=== PATIENT | male | born 1945 | race Caucasian/White ===

== ENCOUNTER → 2016-06-15 | Outpatient (CLI) | payer MEDICARE, OTHER ==
[~2016-06-15] MED LIST: ASP81CT PO; ASP81TEC PO; ASPI-999 PO; BUDE6HFA IH; CATHETER FLUSH 10 ML SYR IV PRN; CLOP75TA PO; DCS100C PO; DIPH25TA82 PO; IBUP-15 PO; IBUP-30 PO; MTP25TSR PO; OMEP20CA12 PO; PANT40TA2 PO; PNT40TEC PO; PRAV40TA2 PO; PRV20T PO; REGADENOSON 0.4 MG/5 ML SYR (LEXISCAN) IV ONE; TIOT18CA IH; TIOT18CA2 IH; [UNRECOGNIZED DRUG - CODE] PO
[2016-06-15 07:59] VITALS: BP 124/79
[2016-06-15 08:09] VITALS: BP 129/79
[2016-06-15 08:10] VITALS: BP 122/78
[2016-06-15 08:12] VITALS: BP 129/77
--- NOTE | 2016-06-16 08:50 | STRESS TEST ---
PROCEDURE PHYSICIAN: HANNAH BASHIR DATE OF PROCEDURE: 06/15/2016 NUCLEAR MYOVIEW REPORT: REFERRING PHYSICIAN: Dr. Davison IN SUMMARY: The patient was injected with 10.92 mCi of technetium 99 Myoview and the resting images were obtained. With peak stress level, 31.1 mCi of technetium 99 Myoview were injected and the stress images were obtained. The test was supervised by Dr. Davison. The resting and stress images were reviewed and compared in the short axis, horizontal long axis, and vertical long axis views. Review of the images showed motion artifact and diaphragmatic attenuation. Overall, there is reversible ischemia involving the mid to apical inferior wall and inferolateral wall. SSS is 6, SDS 6, TID value 0.96. On the gated images, the left ventricle appeared to be normal size with normal contractility. Calculated ejection fraction 67%. IN CONCLUSION: 1. Diaphragmatic attenuation and motion artifact affecting the quality of the images. 2. Mild reversible ischemia involving the mid to apical inferior wall and inferolateral wall. 3. Normal left ventricular size with normal contractility. Calculated ejection fraction 67%. Job ID: [id number] Dictated Date: 06/16/2016 08:01:15 Career And Guidance Counselor Date: 06/16/2016 08:47:04 / anusha
== END ==
LOC: CARD 06:40
PROVIDERS: ATTEND Internal Medicine
DX: I25.10 Atherosclerotic heart disease of native coronary artery without angina pectoris (principal); R07.9 Chest pain, unspecified
CPT/HCPCS: 78452; 93017

== ENCOUNTER 2016-06-30 06:41 | Day surgery (SDC) | payer MEDICARE, OTHER ==
[~2016-06-30] VITALS: Ht 180.3 cm; Wt 94.8 kg
[2016-06-30] VITALS (10 sets, daily range): BP systolic 94–157; BP diastolic 62–98
[~2016-06-30 06:41] MED LIST changes: -ASPI-999 PO; -CATHETER FLUSH 10 ML SYR IV PRN; -IBUP-30 PO; -PANT40TA2 PO; -PRAV40TA2 PO; -REGADENOSON 0.4 MG/5 ML SYR (LEXISCAN) IV ONE; -TIOT18CA2 IH; -[UNRECOGNIZED DRUG - CODE] PO
[2016-06-30] MEDS ORDERED: HEParin (CATH LAB) 2,000 ML IV ONE (07:06)
[2016-06-30] MEDS ORDERED: NS IV 1000 ML 1,000 ML ONE (07:06)
[2016-06-30] MEDS ORDERED: LIDOCAINE 1% INJ 20 ML (XYLOCAINE) VIAL ONE (07:06)
[2016-06-30 07:37] LABS: MEAN PLATELET VOLUME 11.9 FL (7.4-10.4); RED BLOOD COUNT 5.46 10^6/uL (4.35-5.85); RED CELL DISTRIBUTION WIDTH 12.9 % (10.0-14.5); WHITE BLOOD COUNT 9.1 10^3/uL (4.3-11.0)
[2016-06-30] MEDS ORDERED: NS IV 1000 ML 1,000 ML IV SCH ×2 (07:45→10:56)
[2016-06-30 07:47] LABS: INR 1.1 (0.8-1.4); PROTHROMBIN TIME PATIENT 13.5 SEC (12.2-14.7)
[2016-06-30 07:57] LABS: ALBUMIN 4.3 G/DL (3.2-4.5); BILIRUBIN,TOTAL 1.6 MG/DL (0.1-1.0); CALCIUM 9.5 MG/DL (8.5-10.1); CREATININE SERUM 1.24 MG/DL (0.60-1.30); POTASSIUM 4.4 MMOL/L (3.6-5.0); TOTAL PROTEIN 7.1 G/DL (6.4-8.2)
[2016-06-30] MEDS ORDERED: ASPI-999 PO (08:27)
[2016-06-30] MEDS ORDERED: [UNRECOGNIZED DRUG - CODE] PO (08:28)
[2016-06-30] MEDS ORDERED: PANT40TA2 PO (08:28)
[2016-06-30] MEDS ORDERED: TIOT18CA2 IH (08:28)
[2016-06-30] MEDS ORDERED: IBUP-30 PO (08:28)
[2016-06-30] MEDS ORDERED: PRAV40TA2 PO (08:28)
[2016-06-30] MEDS ORDERED: MIDAZOLAM 5 MG/5 ML (VERSED) VIAL ONE (09:36)
[2016-06-30] MEDS ORDERED: fentaNYL INJECTION 100 MCG/2 ML AMP ONE (09:36)
[2016-06-30] MEDS ORDERED: diphenhydrAMINE 50 MG/ML INJ (BENADRYL) ONE (09:36)
[2016-06-30] MEDS ORDERED: NITROGLYCERIN DRIP 25 MG/D5W 250 ML IV ONE (10:22)
[2016-06-30] MEDS ORDERED: ADENOSINE 3 MG/1 ML (ADENOSCAN) 30ML VIAL IV ONE (10:22)
[2016-06-30] MEDS ORDERED: HEParin 1000 UNIT/ML (10ML VIAL) FOR BOLUS ONE (10:22)
--- NOTE | 2016-06-30 10:56 | Cardiac Procedure Note-CS/ASA ---
Pre-Procedure Note Pre-Op Procedure Note H&P Reviewed The H&P was reviewed, patient examined and no changes noted. Date H&P Reviewed: Jun 30, 2016 Time H&P Reviewed: 10:15 Conscious Sedation Pre-Proced Time Reviewed: 10:15 ASA Class: 3 Airway Mallampati Classification: ([place] appropriate class) I. II. III, IV Lungs Heart ASA score ASA 1: a normal healthy patient ASA 2: a patient with a mild systemic disease (mid diabetes, controlled hypertension, obesity ASA 3: a patient with a severe systemic disease that limits activity (angina , COPD, prior Myocardial infarction) ASA 4: a patient with an incapacitating disease that is a constant threat to life (CHF, renal failure) ASA 5: a moribund patient not expected to survive 24 hrs. (ruptured aneurysm) ASA 6: a declared brain patient whose organs are being harvested. For emergent operations, add the letter E after the classification Grade 2 Sedation Plan: Analgesia, Amnesia, Plan communicated to team members, Discussed options with patient/fam, Discussed risks with patient/fam Note The patient is an appropriate candidate to undergo the planned procedure, sedation, and anesthesia. The patient immediately re-assessed prior to indication. CONNOR CERDA MD FACP FAC CCDS Jun 30, 2016 10:56
--- NOTE | 2016-06-30 10:59 | Discharge Inst-Cardiology ---
Discharge Inst-Cardiac Discharge Medications Continued Medications: Aspirin (Aspirin) 81 Mg Tab.chew 81 MG PO DAILY TAB Budesonide/Formoterol Fumarate (Symbicort Inhaler 160/4.5 Mcg) 10.2 Gm Hfa.aer.ad 2 PUFF IH BID INHALER Guaifen/Phenyleph/Acetaminophn (Mucinex Sinus-Max Sev Congest) 1 Each Tablet 1-2 CAP PO Q4H PRN CONGESTION TAB Ibuprofen (Advil) 200 Mg Tablet 200 MG PO BID PRN PAIN TAB Metoprolol Succinate (Toprol Xl) 25 Mg Tab 12.5 MG PO DAILY TAKES 1/2 (25MG) TABLET TAB Pantoprazole Sodium (Protonix) 40 Mg Tablet.dr 40 MG PO DAILY TAB Pravastatin Sodium (Pravastatin Sodium) 40 Mg Tablet 40 MG PO DAILY TAB Tiotropium [place] (Spiriva) 1 Inh Aerp 1 CAP IH DAILY INHALER CONNOR CERDA MD FACP [facility] CCDS Jun 30, 2016 10:59
--- NOTE | 2016-06-30 10:59 | Discharge Inst-Post CATH ---
Discharge Inst-CATH Post Cardiac Cath D/C Inst Follow Up/Plan F/u with Dr Crawford in 2 weeks CARDIAC CATH DISCHARGE INSTRUCTIONS *Hold Metformin for 48 hours post heart cath. ACTIVITY * Go Home directly and rest. * Limit activity of the leg (or wrist if it was used) for 7 days including aerobics, swimming, jogging, bicycling, etc. * Restrict stair-climbing for 7 days if possible, if not, climb up with your non -cath leg, then bring together on the same step. * Avoid lifting, pushing, pulling or excessive movement of the affected extremity for 7 days. * Customary sexual activity may be resumed after 2 days-use caution not to use a position that strains or causes pain to the affected extremity. * No driving for 24 hours. * NO SMOKING. * Avoid straining for bowel movements for 7 days. * Gentle walking on level ground is allowed. * Returning to work will depend on the type of procedure and the results. Your doctor will discuss this with you. CALL YOUR DOCTOR FOR ANY OF THE FOLLOWING: *If bleeding from the puncture site occurs- Apply gentle pressure to site with clean cloth and call your doctor or EMS. * If a knot or lump forms under the skin, increases in size, or causes pain. * If bruising appears to be worsening or moving further down your leg instead of disappearing. * Temperature above 101 F. CARE OF YOUR GROIN INCISION; * Bruising or purple discoloration of the skin near the puncture site is common. * You may shower only, no bathtub bathing for 5 days. Be careful to avoid slipping as your leg may feel stiff. * If a closure device was used on your femoral artery, please see the attached guide regarding care of the device and your leg. * REMOVE the dressing from your groin the next day after your procedure in the shower. CARE OF YOUR WRIST INCISION; * Bruising or purple discoloration of the skin near the puncture site is common. * You may shower. * DO NOT submerge wrist. * Remove dressing in 24 hours. CONNOR CRAWFORD [facility] Jun 30, 2016 10:58
[2016-06-30] MEDS ORDERED: PATIENT MAY USE OWN MEDS, ALL PO SCH (11:00)
--- NOTE | 2016-07-01 10:24 | CARDIAC CATHETERIZATION ---
PROCEDURE PHYSICIAN: CONNOR CERDA DATE OF PROCEDURE: 06/30/2016. Jalen Granados is a 71-year-old man with a known history of coronary disease and chest discomfort who recently underwent a myocardial perfusion imaging study which was reported as having shown some degree of inferior and inferoapical ischemia. Accordingly, cardiac catheterization was carried out after having obtained an informed consent. PROCEDURE: He was brought to the cardiac catheterization laboratory in a fasting state. The right groin was prepared and draped in usual sterile fashion. 1% lidocaine was used for local anesthesia. Modified Seldinger technique was used to advance a 5-Cameroonian sheath in the right femoral artery. 5-Cameroonian JL4 catheter was used for left coronary angiography. 5-Cameroonian JR4 catheter was used for the right coronary angiography. 5-Cameroonian pigtail catheter was used for left heart catheterization, left ventricular angiography. FRACTIONAL FLOW RESERVE MEASUREMENT IN THE LEFT CIRCUMFLEX ARTERY: Following completion of the diagnostic procedure, we proceeded with fractional flow reserve measurement in the left circumflex artery, which had 50 to 60% ostial, 40 to 50% proximal and 40 to 50% mid vessel stenoses. We used the 6-Cameroonian JL4 guide catheter and a pressure wire was then advanced across the lesions and the fractional flow reserve measurement was carried out across the combination of all lesions. The fractional flow reserve was 0.97, indicating hemodynamic insignificance of these lesions. Following the fractional flow reserve measurement, there was some spasm of distal left circumflex artery for which we gave 100 mcg of intracoronary nitroglycerin which relieved the spasm. After removal of the wire and the guide catheter, we used Mynx to achieve hemostasis. Angiography of the right femoral artery had been carried out through the sheath at the beginning of the procedure. Overall, he tolerated the procedure well. HEMODYNAMICS: Left ventricular end diastolic pressure following coronary angiography was 6 mmHg. There was no significant pressure gradient on pullback across the aortic valve. Ascending aortic pressure 105/66 with a mean of 62 mmHg. LEFT VENTRICULAR ANGIOGRAPHY: Ventricular angiography was carried out in the right anterior oblique projection. Global left ventricular systolic is normal. No regional wall motion abnormalities are seen. Left ventricular ejection fraction is approximately 60%. CORONARY ANGIOGRAPHY: The left main coronary artery is free of significant disease. Diffuse coronary plaques are present. The left anterior descending artery has diffuse, mild disease. Left circumflex artery has 50% ostial, 40 to 50% proximal to mid vessel and 40 to 50% mid to distal vessel stenoses and the fractional flow reserve across the combination of all these lesions is 0.97, indicating that these lesions are hemodynamically insignificant. The right coronary artery has a widely patent stent in its proximal portion. This is known to be Promus 3.0 x 18 mm stent that was placed in July 2011. This is widely patent and free of significant disease. The right coronary artery is mildly ectatic. CONCLUSIONS: 1. Coronary disease as detailed above. The coronary artery disease is mild to moderate. Multiple lesions in the left circumflex artery are of up to 50 to 60% and fractional flow reserve across all of these lesions is 0.97. The right coronary artery is widely patent stent that is known to be Promus 3.0 x 18 mm that was placed in July 2011. 2. Normal left ventricular end diastolic pressure. 3. Normal global left ventricular systolic function with an ejection fraction of 60%. 4. No significant mitral regurgitation. DISCUSSION AND RECOMMENDATIONS: Based on the results of this the study, it appears appropriate to continue a conservative regimen. Risk factor modification has been reviewed and outpatient follow-up is advised. Job ID: [id number] Dictated Date: 06/30/2016 10:50:00 Digester Cook Date: 07/01/2016 10:11:34 / vickie
== END 2016-06-30 14:35 | disposition home or self-care (01) ==
LOC: CATH 06:41 → SURG 10:58 → CATH 14:35
PROVIDERS: ATTEND Internal Medicine Cardiovascular Disease
DX: R07.89 Other chest pain (principal); R94.39 Abnormal result of other cardiovascular function study; I25.10 Atherosclerotic heart disease of native coronary artery without angina pectoris; J44.9 Chronic obstructive pulmonary disease, unspecified; K21.9 Gastro-esophageal reflux disease without esophagitis; E78.5 Hyperlipidemia, unspecified; Z85.46 Personal history of malignant neoplasm of prostate; Z87.891 Personal history of nicotine dependence; Z95.1 Presence of aortocoronary bypass graft; Z79.899 Other long term (current) drug therapy
CPT/HCPCS: 36415; 80053; 80061; 85027; 85610; 85730; 87081; 93458; 93571

== ENCOUNTER 2017-08-09 05:49 | Outpatient (CLI) | payer MEDICARE, OTHER ==
[~2017-08-09] VITALS: Ht 180.3 cm; Wt 94.8 kg
[~2017-08-09 05:49] MED LIST changes: +ASPI-999 PO; +IBUP-30 PO; +PANT40TA2 PO; +PRAV40TA2 PO; +TIOT18CA2 IH; +[UNRECOGNIZED DRUG - CODE] PO
[2017-08-09] MEDS ORDERED: BUDE10.2 IH (12:16)
[2017-08-09] MEDS ORDERED: METO-387 PO (12:16)
== END 2017-08-09 12:20 ==
LOC: PREOP 05:49
PROVIDERS: ATTEND Surgery
DX: Z01.818 Encounter for other preprocedural examination (principal); K40.90 Unilateral inguinal hernia, without obstruction or gangrene, not specified as recurrent

== ENCOUNTER 2017-08-26 07:08 | Day surgery (SDC) | payer MEDICARE, OTHER ==
[~2017-08-26] VITALS: Ht 180.3 cm; Wt 94.8 kg
[~2017-08-26 07:08] MED LIST changes: +BUDE10.2 IH; +METO-387 PO
[2017-08-26] MEDS ORDERED: BUP/EPI 0.5% 1:200,000 (SENSORCAINE) 30 ML VIAL ONE (07:25)
[2017-08-26] MEDS ORDERED: ceFAZolin 1 GM/NS 100 ML IVPB IV ONE ×2 (07:30)
[2017-08-26] MEDS ORDERED: CATHETER FLUSH 10 ML SYR IV PRN (07:30)
[2017-08-26] MEDS ORDERED: LACTATED RINGERS 1,000 ML IV PRN (07:40)
[2017-08-26 07:44] VITALS: BP 135/96
[2017-08-26] MEDS ORDERED: ceFAZolin INJECTION 1,000 MG in NS (IVPB) 100 ML IV ONE (07:45)
--- NOTE | 2017-08-26 07:57 | Progress Note-Pre Operative ---
Pre-Operative Progress Note H&P Reviewed The H&P was reviewed, patient examined and no changes noted. Date Seen by Provider: Aug 26, 2017 Time Seen by Provider: 07:50 Date H&P Reviewed: Aug 26, 2017 Time H&P Reviewed: 07:55 Pre-Operative Diagnosis: Symptomatic right inguinal hernia ZOYA ACOSTA APRN Aug 26, 2017 7:57 am
[2017-08-26] MEDS ORDERED: HYDROcodone/APAP 5 MG/325 MG (LORTAB) TAB PO ONE (08:00)
[2017-08-26] MEDS ORDERED: ONDANSETRON 4 MG/2 ML (SDV) Z0FRAN IVP PRN ×2 (08:00→10:15)
[2017-08-26] MEDS ORDERED: morphine INJ 10 MG/ML 1ML (SYR OR VIAL) IVP PRN ×2 (08:00→10:15)
[2017-08-26] MEDS ORDERED: ACETAMINOPHEN 325 MG TABLET/CAPLET (TYLENOL) PO PRN (08:00)
[2017-08-26] MEDS ORDERED: proPOfol 200 MG/20 ML (DIPRIVAN) VIAL IV ONE (08:03)
[2017-08-26] MEDS ORDERED: ROCURONIUM 10 MG/ML 5 ML SYRINGE IV ONE (08:03)
[2017-08-26] MEDS ORDERED: MIDAZOLAM 2 MG/2 ML (VERSED) VIAL ONE (08:03)
[2017-08-26] MEDS ORDERED: DEXAMETHASONE 10 MG/ML (DECADRON) 1 ML VIAL ONE (08:03)
[2017-08-26] MEDS ORDERED: ONDANSETRON 4 MG/2 ML (SDV) Z0FRAN ONE (08:03)
[2017-08-26] MEDS ORDERED: SEVOFLURANE (ULTANE) 15 ML INHAL SOLN ONE ×5 (08:03→09:47)
[2017-08-26] MEDS ORDERED: LIDOCAINE PF 2% 5 ML (XYLOCAINE) VIAL ONE (08:03)
[2017-08-26] MEDS ORDERED: fentaNYL INJECTION 100 MCG/2 ML AMP ONE (08:04)
[2017-08-26 08:05] LABS: BASOPHILS # (AUTO) 0.1 10^3/uL (0.0-0.1); BASOPHILS % (AUTO) 1 % (0-10); EOSINOPHILS # (AUTO) 0.4 10^3/uL (0.0-0.3); EOSINOPHILS % (AUTO) 6 % (0-10); HEMATOCRIT 49 % (40-54); HEMOGLOBIN 16.8 G/DL (13.3-17.7); LYMPHOCYTES % (AUTO) 15 % (12-44); MEAN CORPUSCULAR HEMOGLOBIN 30 PG (25-34); MEAN CORPUSCULAR HGB CONC 34 G/DL (32-36); MEAN CORPUSCULAR VOLUME 88 FL (80-99); MEAN PLATELET VOLUME 12.4 FL (7.4-10.4); MONOCYTES # (AUTO) 0.9 X 10^3 (0.0-1.0); MONOCYTES % (AUTO) 14 % (0-12); NEUTROPHILS # (AUTO) 4.3 X 10^3 (1.8-7.8); NEUTROPHILS % (AUTO) 65 % (42-75); PLATELET COUNT 162 10^3/uL (130-400); RED BLOOD COUNT 5.58 10^6/uL (4.35-5.85); RED CELL DISTRIBUTION WIDTH 12.9 % (10.0-14.5); WHITE BLOOD COUNT 6.6 10^3/uL (4.3-11.0)
[2017-08-26] MEDS ORDERED: PHENYLEPHRINE 100 MCG/ML 10 ML (ANESTHESIA) SYR ONE (09:42)
[2017-08-26] MEDS ORDERED: GLYCOPYRROLATE 0.2 MG/ML (ROBINUL) 2 ML VIAL ONE (09:46)
[2017-08-26] MEDS ORDERED: NEOSTIGMINE 1 MG/ML 5 ML SYRINGE ONE (09:46)
--- NOTE | 2017-08-26 10:01 | Progress Note-Post Operative ---
Post-Operative Progess Note Surgeon (s)/Mechanical Door Repairer (s) Surgeon ANNA WHITE MD Mechanical Door Repairer: gianni rios WELDER Pre-Operative Diagnosis Symptomatic right inguinal hernia Post-Operative Diagnosis right recurrent incarcerated direct inguinal hernia. Procedure & Operative Findings Date of Procedure 08/26/17 Procedure Performed/Findings laparoscopic right recurrent incarcerated inguinal hernia repair with mesh. Anesthesia Type GET Estimated Blood Loss Estimated blood loss (mL): minimal Specimens/Packing Specimens Removed none ANNA WHITE MD Aug 26, 2017 10:01 am
[2017-08-26] MEDS ORDERED: HYDR-34 PO (10:03)
--- NOTE | 2017-08-26 10:05 | Discharge Inst-Surgical ---
D/C Lap Instructions-CHRISTOPHER New, Converted, or Re-Newed RX: RX on Chart Follow Up Appt in 2 weeks Activity as tolerated No driving for 24 hours No driving while on pain medications Incentive Spirometry use every 2 hours while awake Regular Diet Symptoms to Report: Fever over 101 degree F, Nausea/Vomiting Infection Signs and Symptoms to report: Increased redness, Foul odor of wound, Increased drainage Bathing instructions: May shower Operative Area Clean/Dry; Keep incision clean/dry If any problems/questions: Contact your physician or go to Emergency Room ANNA WHITE MD Aug 26, 2017 10:05 am
[2017-08-26] MEDS ORDERED: MEPERIDINE (DEMEROL) INJ 50 MG/ML IVP PRN (10:15)
[2017-08-26 11:05] VITALS: BP 100/56
[2017-08-26 11:35] VITALS: BP 102/60
[2017-08-26 12:05] VITALS: BP 104/60
[2017-08-26] MEDS ORDERED: HYDROcodone/APAP 5 MG/325 MG (LORTAB) TAB ONE (12:05)
[2017-08-26 13:00] VITALS: BP 110/63
[2017-08-26 13:40] VITALS: BP 110/63
--- NOTE | 2017-08-26 13:58 | Anesthesia-General Post-Op ---
General Patient Condition Mental Status/LOC: Same as Preop Cardiovascular: Satisfactory Nausea/Vomiting: Absent Respiratory: Satisfactory Pain: Controlled Complications: Absent Post Op Complications Complications None Follow Up Care/Instructions Patient Instructions None needed. Anesthesia/Patient Condition Patient Condition Patient was seen after surgery and was doing well, no complaints, stable vital signs, no apparent adverse anesthesia problems. CHEIKH ELLIOTT DO Aug 26, 2017 13:58
--- NOTE | 2017-08-26 14:34 | OPERATIVE REPORT ---
DATE OF SERVICE: 08/26/2017 ATTENDING PRIMARY CARE PHYSICIANS: Dr. Davison and Dr. Zimmerman. PREOPERATIVE DIAGNOSIS: Symptomatic recurrent right inguinal hernia. POSTOPERATIVE DIAGNOSIS: Symptomatic recurrent incarcerated direct inguinal hernia. PROCEDURE: Laparoscopic recurrent incarcerated right inguinal hernia repair with mesh. SURGEON: Anna Kirkpatrick MD. ANESTHESIA: General endotracheal. MUSIC INSTRUCTOR: Abe Cuevas APRN. ANESTHESIA: General endotracheal. ESTIMATED BLOOD LOSS: Minimal. FINDINGS: There was a recurrent inguinal hernia, which was a direct component. This was incarcerated and contents included preperitoneal fat. DISPOSITION: The patient tolerated the procedure well. INDICATIONS: The patient is a 72-year-old male with pain and swelling in the right inguinal region. He states that he has noticed this approximately 6 weeks ago while he was lifting oxygen tank for his . He first noticed the pain and then the bulge and this worsened over time. He was seen by his primary care physician and found to have the lesion. Upon examination, he had a right inguinal hernia, which was tender to palpation. He has had bilateral inguinal hernia repairs by open technique in the 1970s. DESCRIPTION OF PROCEDURE: The patient was brought to the operating room, laid supine on the table. After adequate IV pain and sedative medications and general endotracheal intubation, the abdomen was prepped and draped in standard surgical fashion. A 0.5% Marcaine with epinephrine was used to anesthetize the overlying skin in the infraumbilical rim and a transverse skin incision made using a 15 blade. The abdominal wall was then retracted anteriorly with a sharp towel clamp and a Veress needle inserted with a low opening pressure of 0 mmHg and the abdomen was then insufflated to 15 mmHg pressure. The Veress needle removed and a 10 mm Xcel trocar placed followed by a 10 mm 45-degree angle laparoscope. The patient was then placed in Trendelenburg position. A four-quadrant abdominal exploration was performed. There was a right incarcerated direct inguinal hernia identified. The herniated contents appeared to be mesenteric fat or preperitoneal fat. There was no left inguinal hernia component. It was visualized the small bowel and omentum appeared normal. Under direct visualization, we then proceeded to place bilateral 5 mm ports after the skin and peritoneal lining were anesthetized using 0.5% Marcaine with epinephrine and a transverse skin incision made using a 15 blade. We then proceeded with dissection of the peritoneal lining, first starting laterally towards the conjoint tendon using Sonicision. We then proceeded medially towards Chetan's ligament. We then proceeded with inferior dissection with the hernia sac and its contents. The contents reduced without pressure. This was all preperitoneal fat. There was no ischemia identified. A Bard 3DMax polypropylene mesh was then placed into the peritoneal cavity and tacked to Chetan's ligament medially and the conjoint tendon ligament laterally. The peritoneal lining were then placed entirely over the mesh and a few tacks placed to hold this into place with visualization of good hemostasis. The 10 mm port site fascia and peritoneum were then closed under direct visualization using a Miguelito-Melonie device and an 0 Vicryl suture. Abdomen was then desufflated. The remaining ports removed. All skin incisions were closed using 4-0 Monocryl running subcuticular sutures. The patient tolerated the procedure well. We will start IV and oral pain medication as well as a clear liquid diet. Once he is tolerating clears, has good pain control with oral pain medications, ambulating well, we will discharge him home. Job ID: [id number] DocumentID: [id number] Dictated Date: 08/26/2017 10:19:35 Spent Grain Dryer Date: 08/26/2017 14:33:25 Dictated By: ANNA KIRKPATRICK MD [facility]
== END 2017-08-26 13:40 | disposition home or self-care (01) ==
LOC: SDC 07:08
PROVIDERS: ATTEND Surgery
DX: K40.31 Unilateral inguinal hernia, with obstruction, without gangrene, recurrent (principal); I25.10 Atherosclerotic heart disease of native coronary artery without angina pectoris; I10 Essential (primary) hypertension; E78.00 Pure hypercholesterolemia, unspecified; J44.9 Chronic obstructive pulmonary disease, unspecified; K21.9 Gastro-esophageal reflux disease without esophagitis; Z85.46 Personal history of malignant neoplasm of prostate; Z79.82 Long term (current) use of aspirin; Z79.899 Other long term (current) drug therapy; Z95.5 Presence of coronary angioplasty implant and graft
CPT/HCPCS: 36415; 85025; 87081; 94664

== ENCOUNTER → 2018-08-16 | Outpatient (CLI) | payer MEDICARE, OTHER ==
[~2018-08-16] MED LIST changes: +HYDR-34 PO
--- NOTE | 2018-08-16 12:02 | Diagnostic Imaging Report ---
INDICATION: Pneumonia. COMPARISON: 11/22/2012. FINDINGS: Frontal and lateral radiographic views of the chest were obtained and demonstrate patchy alveolar infiltrate appearing opacities within the right lower lobe, posteriorly. Left lung is relatively clear. There does appear to be background hyperinflation bilaterally. No large effusion or pneumothorax is seen on either side. Cardiac silhouette and pulmonary vasculature are within normal limits. Bony structures show no acute abnormalities. IMPRESSION: 1. Patchy pneumonia-type infiltrates within the right lower lobe. Continued followup to resolution is recommended. 2. Background emphysematous disease. Dictated by: Dictated on workstation # [id number]
== END ==
LOC: RAD 11:23
PROVIDERS: ATTEND Internal Medicine
DX: J43.9 Emphysema, unspecified (principal); J18.9 Pneumonia, unspecified organism
CPT/HCPCS: 71046

== ENCOUNTER → 2019-02-21 | Outpatient (CLI) | payer MEDICARE, OTHER ==
[~2019-02-21] MED LIST changes: +REGADENOSON 0.4 MG/5 ML SYR (LEXISCAN) IV ONE
[2019-02-21] MEDS: CATHETER FLUSH 10 ML SYR IV PRN ×2 (11:19→13:10)
[2019-02-21 13:00] VITALS: BP 103/78
[2019-02-21 13:10] VITALS: BP 103/78
[2019-02-21 13:11] VITALS: BP 147/95
--- NOTE | 2019-02-22 18:04 | STRESS TEST ---
DATE OF SERVICE: 02/21/2019 RESTING AND POST REGADENOSON TECHNETIUM-99M TETROFOSMIN SPECT CT IMAGING ORDERING PHYSICIAN: Lindsey Gomez APRN PRIMARY PHYSICIAN: Dr. Davison. CLINICAL DIAGNOSES: Coronary artery disease. Baseline images were carried out after injection of 10.79 mCi of technetium-99m Tetrofosmin. This was followed by 0.4 mg regadenoson and 31.6 mCi of technetium-99m Tetrofosmin for stress imaging. The electrocardiogram showed sinus rhythm at baseline and did not change significantly with the regadenoson infusion. The patient noted some shortness of breath following regadenoson which resolved in a few minutes. Review of images at rest and following stress does not indicate any distinct perfusion defects consistent with significant myocardial ischemia or infarction. This study is compromised because of considerable patient motion during image acquisition. Gated images show normal regional wall motion. Left ventricular ejection fraction is calculated to be 74%. Left ventricular end diastolic volume is 53 mL. TID is absent (1.03). CONCLUSIONS: 1. No evidence of any significant myocardial ischemia or infarction on this study. 2. Normal regional wall motion. 3. Normal global left ventricular systolic function with a calculated ejection fraction of 74%. Job ID: [id number] DocumentID: [id number] Dictated Date: 02/22/2019 12:58:54 Neonatal Surgeon Date: 02/22/2019 18:04:05 Dictated By: CONNOR CERDA MD, MA, FACP, FACC,
== END ==
LOC: CARD 10:44
PROVIDERS: ATTEND Nurse Practitioner Family
DX: I25.10 Atherosclerotic heart disease of native coronary artery without angina pectoris (principal); I65.29 Occlusion and stenosis of unspecified carotid artery; E78.5 Hyperlipidemia, unspecified
CPT/HCPCS: 78452; 93017

== ENCOUNTER → 2019-12-14 | Outpatient (CLI) | payer MEDICARE, OTHER ==
[~2019-12-14] MED LIST changes: -METO-387 PO; -REGADENOSON 0.4 MG/5 ML SYR (LEXISCAN) IV ONE
== END ==
LOC: LABNPT 08:16
PROVIDERS: ATTEND Internal Medicine
DX: Z20.828 Contact with and (suspected) exposure to other viral communicable diseases (principal)
CPT/HCPCS: 87635

== ENCOUNTER → 2020-08-23 | Outpatient (CLI) | payer MEDICARE, OTHER ==
--- NOTE | 2020-08-23 10:59 | Diagnostic Imaging Report ---
INDICATION: Right upper quadrant pain PROCEDURE: Ultrasound abdomen complete. TECHNIQUE: Multiple real-time grayscale images were obtained of the abdomen in various projections. There are no prior ultrasound examinations available for comparison. There is no evidence for cholelithiasis or acute cholecystitis and the common bile duct is not dilated. The liver is homogeneous and does not appear to be enlarged. There is no focal mass involving the liver and the biliary tree is not abnormally distended. Spectral and color flow images of the portal vein shows the vein is patent. The spleen is somewhat prominent but within normal limits. The spleen measures 12.0 x 5.6 x 4.9 cm. There is no focal abnormality involving the spleen. The kidneys and the inferior vena cava are unremarkable. The aorta and the pancreas were obscured by bowel gas. There is no solid abdominal mass or free fluid collection evident. IMPRESSION: 1. There is no acute abnormality of the abdomen although the pancreas and aorta were not well-visualized. 2. If there is clinical concern regarding an acute abnormality of the gallbladder and if further imaging is desired, then nuclear medicine hepatobiliary scan would be recommended. Dictated by: Dictated on workstation # [id number]
== END ==
LOC: RAD 07:39
PROVIDERS: ATTEND Internal Medicine
DX: R10.11 Right upper quadrant pain (principal)
CPT/HCPCS: 76700

== ENCOUNTER → 2020-09-12 | Outpatient (CLI) | payer MEDICARE ==
[~2020-09-12] MED LIST changes: +CATHETER FLUSH 10 ML SYR IV PRN
--- NOTE | 2020-09-12 11:18 | Diagnostic Imaging Report ---
INDICATION: Right upper quadrant abdominal pain. Patient was administered 5.3 mCi technetium 99m Choletec intravenously and imaging over the abdomen was performed. At 45 minutes, patient ingested 8 ounces of Ensure and the gallbladder ejection fraction was calculated. There is homogeneous uptake of activity by the liver with prompt excretion of activity into the common duct and gallbladder. There is normal passage of activity into the small bowel. Gallbladder ejection fraction is normal at 70%. IMPRESSION: Normal HIDA scan and gallbladder ejection fraction. Dictated by: Dictated on workstation # [id number]
== END ==
LOC: CARD 10:00
PROVIDERS: ATTEND Internal Medicine
DX: R10.11 Right upper quadrant pain (principal)
CPT/HCPCS: 78227; A9537

== ENCOUNTER 2020-12-17 10:53 | Emergency (ER) | payer MEDICARE, OTHER ==
[~2020-12-17] VITALS: Ht 180.3 cm; Wt 84.0 kg
[~2020-12-17 10:53] MED LIST changes: -CATHETER FLUSH 10 ML SYR IV PRN
--- NOTE | 2020-12-17 11:15 | ED Respiratory ---
General Chief Complaint: Respiratory Problems Stated Complaint: SOB Source: patient History of Present Illness Date Seen by Provider: Dec 17, 2020 Time Seen by Provider: 10:57 Initial Comments PT ARRIVES VIA POV FROM HOME C/O SHORTNESS OF BREATH SINCE Wednesday12/15/20 STATES HE HAS COPD, AND USED ALBUTEROL NEBULIZER X 1 ON WEDNESDAY, AND USED HIS SYMBICORT INHALER JUST PRIOR TO ARRIVAL. OTHERWISE HAS NOT TAKEN ANYTHING ELSE FOR SYMPTOMS C/O COUGH, BUT STATES IS NORMAL FOR HIM NO FEVER/SWEATS/CHILLS NO LOSS OF TASTE/SMELL NO SWELLING IN LEGS/ FEET NO CHEST PAIN HAS NOT SOUGHT CARE UNTIL TODAY SYMPTOMS NO DIFFERENT TODAY DOES NOT WEAR HOME O2 NO KNOWN SICK CONTACTS--LIVES AT HOME WITH PT DID RECEIVE COVID VACCINE PCP: DR. VENEGAS SEWER LINE PHOTO INSPECTOR: DR. CERDA Allergies and Home Medications Allergies Coded Allergies: No Known Drug Allergies (Unverified , 08/09/17) Home Medications Aspirin 81 Mg Tab.chew, 81 MG PO DAILY, (Reported) Budesonide/Formoterol Fumarate 10.2 Gm Hfa.aer.ad, 2 PUFF IH BID, (Reported) Hydrocodone Bit/Acetaminophen 1 Ea Tablet, 1-2 EACH PO Q4H Prescribed by: ANNA WHITE on 08/26/17 1003 Metoprolol Succinate 25 Mg Tab.er.24h, 12.5 MG PO DAILY, (Reported) Pantoprazole Sodium 40 Mg Tablet.dr, 40 MG PO DAILY, (Reported) Pravastatin Sodium 40 Mg Tablet, 40 MG PO DAILY, (Reported) Past Erxrhis-Uwjcfw-Qdijex Hx Seasonal Allergies Seasonal Allergies: No Past Medical History COPD Coronary Artery Disease, Heart Attack, High Cholesterol, Hypertension Reproductive Disorders: No Sexually Transmitted Disease: No HIV/AIDS: No Prostate Problems Gastroesophageal Reflux, Polyps Loss of Vision: Bilateral Hearing Impairment: Denies Prostate What Type of Treatment Did You: Surgical Intervention Psoriasis Adverse Reaction/Blood Tranf: No (HAS HAD BLOOD WITH NO REACTION) Physical Exam Vital Signs - First Documented 12/17/20 10:58 Temp 36.0 Pulse 76 Resp 16 B/P (MAP) 166/97 (120) Pulse Ox 96 O2 Delivery Room Air Capillary Refill : Height: 5'11.00" Weight: 209lbs. 0.0oz. 94.432059xf; 29.2 BMI Method: Focused Exam Lactate Level 12/17/20 11:05: Lactic Acid Level 0.88 Lactic Acid Level Laboratory Tests Test 12/17/20 11:05 Lactic Acid Level 0.88 MMOL/L (0.50-2.00) Progress/Results/Core Measures Suspected Sepsis SIRS Temperature: Pulse: Respiratory Rate: Laboratory Tests 12/17/20 11:05: White Blood Count 7.0 Blood Pressure / Mean: 12/17/20 11:05: Lactic Acid Level 0.88 Laboratory Tests 12/17/20 11:05: Creatinine 1.13, INR Comment 1.0, Platelet Count 207, Total Bilirubin 2.0H Results/Orders Lab Results Laboratory Tests Test 12/17/20 11:01 12/17/20 11:05 Range/Units Influenza Type A (RT-PCR) Not Detected Not Detecte Influenza Type B (RT-PCR) Not Detected Not Detecte SARS-CoV-2 RNA (RT-PCR) Not Detected Not Detecte White Blood Count 7.0 4.3-11.0 10^3/uL Red Blood Count 5.37 4.30-5.52 10^6/uL Hemoglobin 15.8 13.3-17.7 g/dL Hematocrit 49 40-54 % Mean Corpuscular Volume 91 80-99 fL Mean Corpuscular Hemoglobin 29 25-34 pg Mean Corpuscular Hemoglobin Concent 32 32-36 g/dL Red Cell Distribution Width 12.5 10.0-14.5 % Platelet Count 207 130-400 10^3/uL Mean Platelet Volume 11.5 9.0-12.2 fL Immature Granulocyte % (Auto) 0 % Neutrophils (%) (Auto) 73 42-75 % Lymphocytes (%) (Auto) 13 12-44 % Monocytes (%) (Auto) 9 0-12 % Eosinophils (%) (Auto) 3 0-10 % Basophils (%) (Auto) 1 0-10 % Neutrophils # (Auto) 5.1 1.8-7.8 10^3/uL Lymphocytes # (Auto) 0.9 L 1.0-4.0 10^3/uL Monocytes # (Auto) 0.7 0.0-1.0 10^3/uL Eosinophils # (Auto) 0.2 0.0-0.3 10^3/uL Basophils # (Auto) 0.1 0.0-0.1 10^3/uL Immature Granulocyte # (Auto) 0.0 0.0-0.1 10^3/uL Erythrocyte Sedimentation Rate 1 0-30 MM/HR Prothrombin Time 13.6 12.2-14.7 SEC INR Comment 1.0 0.8-1.4 Activated Partial Thromboplast Time 32 24-35 SEC D-Dimer < 0.22 0.00-0.49 UG/ML Sodium Level 140 135-145 MMOL/L Potassium Level 4.0 3.6-5.0 MMOL/L Chloride Level 102 98-107 MMOL/L Carbon Dioxide Level 30 21-32 MMOL/L Anion Gap 8 5-14 MMOL/L Blood Urea Nitrogen 13 7-18 MG/DL Creatinine 1.13 0.60-1.30 MG/DL Estimat Glomerular Filtration Rate > 60 BUN/Creatinine Ratio 12 Glucose Level 95 70-105 MG/DL Lactic Acid Level 0.88 0.50-2.00 MMOL/L Calcium Level 9.2 8.5-10.1 MG/DL Corrected Calcium 9.1 8.5-10.1 MG/DL Magnesium Level 2.3 1.6-2.4 MG/DL Total Bilirubin 2.0 H 0.1-1.0 MG/DL Aspartate Amino Transf (AST/SGOT) 23 5-34 U/L Alanine Aminotransferase (ALT/SGPT) 26 0-55 U/L Alkaline Phosphatase 124 40-136 U/L Total Creatine Kinase 50 30-200 U/L Creatine Kinase MB 2.0 <6.6 NG/ML Myoglobin 97.5 H 10.0-92.0 NG/ML Troponin I < 0.028 <0.028 NG/ML C-Reactive Protein High Sensitivity 0.16 0.00-0.50 MG/DL B-Type Natriuretic Peptide 27.9 <100.0 PG/ML Total Protein 6.7 6.4-8.2 GM/DL Albumin 4.1 3.2-4.5 GM/DL Amylase Level 58 25-125 U/L Procalcitonin 0.04 <0.10 NG/ML Serum Alcohol < 10 <10 MG/DL My Orders Orders - REZA MCNAMARA DO Ed Iv/Invasive Line Start (12/17/20 10:59) Ekg Tracing (12/17/20 10:59) Monitor-Rhythm Ecg Trace Only (12/17/20 10:59) BNP (12/17/20 10:59) Cbc With Automated Diff (12/17/20 10:59) Comprehensive Metabolic Panel (12/17/20 10:59) Creatine Kinase (12/17/20 10:59) Creatine Kinase Mb (12/17/20 10:59) Hs C Reactive Protein (12/17/20 10:59) Fibrin Degradation Products (12/17/20 10:59) Magnesium (12/17/20 10:59) Protime With Inr (12/17/20 10:59) Partial Thromboplastin Time (12/17/20 10:59) Erythrocyte Sedimentation Rate (12/17/20 10:59) Myoglobin Serum (12/17/20 10:59) Troponin I (12/17/20 10:59) Chest 1 View, Ap/Pa Only (12/17/20 10:59) Procalcitonin (Pct) (12/17/20 10:59) Covid 19 Inhouse Test (12/17/20 10:59) Influenza A And B By Pcr (12/17/20 10:59) Alcohol (12/17/20 10:59) Amylase (12/17/20 10:59) Lactic Acid Analyzer (12/17/20 10:59) Blood Culture (12/17/20 10:59) Methylprednisolone Sod Succ (Solu-Medrol (12/17/20 12:15) Vital Signs/I&O 12/17/20 10:58 Temp 36.0 Pulse 76 Resp 16 B/P (MAP) 166/97 (120) Pulse Ox 96 O2 Delivery Room Air Capillary Refill : Diagnostic Imaging Comments CXR--PER RADIOLOGIST REPORT AT 1125 FINDINGS: The lung volumes are normal. No focal consolidation is seen. Chronic fibrotic changes are again seen in the lungs. No large pleural effusion or pneumothorax is seen. The cardiomediastinal silhouette is normal in size and contour. No acute osseous abnormality is seen. IMPRESSION: 1. Stable chronic fibrotic changes in the lungs without focal consolidation to suggest pneumonia. Reviewed: Reviewed by Me Departure Impression Primary Impression: COPD exacerbation Disposition: HOME, SELF-CARE Condition: Stable Departure-Patient Inst. Decision time for Depature: 12:10 Referrals: ALE VENEGAS DO (PCP/Family) Primary Care Physician Patient Instructions: Chronic Obstructive Pulmonary Disease (COPD), Including Emphysema Add. Discharge Instructions: USE YOUR ALBUTEROL NEBULIZER EVERY 4 HOURS NEEDED FOR SHORTNESS OF BREATH USE YOUR SYMBICORT TWICE A DAY EVERY DAY FOLLOW UP WITH DR. VENEGAS THIS WEEK FOR FURTHER CARE--CALL TODAY TO SCHEDULE AN APPOINTMENT All discharge instructions reviewed with patient and/or family. Voiced understanding. Scripts Methylprednisolone (Medrol) 4 Mg Tab.ds.pk 4 MG PO UD for 6 Days, #21 PKG PER DOSE PACK INSTRUCTIONS Prov: REZA MCNAMARA DO 12/17/20 REZA MCNAMARA DO Dec 17, 2020 11:15
[2020-12-17 11:21] LABS: BASOPHILS # (AUTO) 0.1 10^3/uL (0.0-0.1); BASOPHILS % (AUTO) 1 % (0-10); EOSINOPHILS # (AUTO) 0.2 10^3/uL (0.0-0.3); EOSINOPHILS % (AUTO) 3 % (0-10); HEMATOCRIT 49 % (40-54); HEMOGLOBIN 15.8 g/dL (13.3-17.7); LYMPHOCYTES # (AUTO) 0.9 10^3/uL (1.0-4.0); LYMPHOCYTES % (AUTO) 13 % (12-44); MEAN CORPUSCULAR HEMOGLOBIN 29 pg (25-34); MEAN CORPUSCULAR HGB CONC 32 g/dL (32-36); MEAN CORPUSCULAR VOLUME 91 fL (80-99); MEAN PLATELET VOLUME 11.5 fL (9.0-12.2); MONOCYTES # (AUTO) 0.7 10^3/uL (0.0-1.0); MONOCYTES % (AUTO) 9 % (0-12); NEUTROPHILS # (AUTO) 5.1 10^3/uL (1.8-7.8); NEUTROPHILS % (AUTO) 73 % (42-75); PLATELET COUNT 207 10^3/uL (130-400)
--- NOTE | 2020-12-17 11:24 | Diagnostic Imaging Report ---
EXAMINATION: Chest 1 view HISTORY: Dyspnea. Evaluate for pneumonia. COMPARISON: 08/16/2018. FINDINGS: The lung volumes are normal. No focal consolidation is seen. Chronic fibrotic changes are again seen in the lungs. No large pleural effusion or pneumothorax is seen. The cardiomediastinal silhouette is normal in size and contour. No acute osseous abnormality is seen. IMPRESSION: 1. Stable chronic fibrotic changes in the lungs without focal consolidation to suggest pneumonia. Dictated by: Dictated on workstation # [id number]
[2020-12-17 11:30] LABS: ALBUMIN 4.1 GM/DL (3.2-4.5); CHLORIDE 102 MMOL/L (98-107); SODIUM 140 MMOL/L (135-145)
[2020-12-17 11:31] LABS: CALCIUM 9.2 MG/DL (8.5-10.1)
[2020-12-17 11:32] LABS: AMYLASE 58 U/L (25-125)
[2020-12-17 11:33] LABS: GLUCOSE 95 MG/DL (70-105); TOTAL PROTEIN 6.7 GM/DL (6.4-8.2)
[2020-12-17 11:34] LABS: CARBON DIOXIDE 30 MMOL/L (21-32)
[2020-12-17 11:36] LABS: ALKALINE PHOSPHATASE 124 U/L (40-136); CREATININE SERUM 1.13 MG/DL (0.60-1.30); GFR ESTIMATED > 60
[2020-12-17 11:37] LABS: BUN/CREATININE RATIO 12
[2020-12-17 11:39] LABS: ALANINE AMINOTRANSFERASE 26 U/L (0-55)
[2020-12-17 11:40] LABS: CREATINE KINASE 50 U/L (30-200); MAGNESIUM 2.3 MG/DL (1.6-2.4)
[2020-12-17 11:49] LABS: PROTHROMBIN TIME PATIENT 13.6 SEC (12.2-14.7)
[2020-12-17 11:50] LABS: ERYTHROCYTE SEDIMENTATION RATE 1 MM/HR (0-30); FIBRIN DEGRADATION PRODUCTS < 0.22 UG/ML (0.00-0.49); PARTIAL THROMBOPLASTIN TIME 32 SEC (24-35)
[2020-12-17] MEDS ORDERED: methylPREDNISolone 125 MG (Solu-MEDROL) VIAL IVP ONE (12:15)
[2020-12-17] MEDS ORDERED: METH4TAB PO (12:21)
[2020-12-17 12:30] VITALS: BP 121/82
== END 2020-12-17 12:30 | disposition home or self-care (01) ==
LOC: EDUNIT# 10:53 → ER 10:57
DX: J44.1 Chronic obstructive pulmonary disease with (acute) exacerbation (principal); I10 Essential (primary) hypertension; I25.2 Old myocardial infarction; K21.9 Gastro-esophageal reflux disease without esophagitis; E78.00 Pure hypercholesterolemia, unspecified; I25.10 Atherosclerotic heart disease of native coronary artery without angina pectoris; Z20.822 Contact with and (suspected) exposure to COVID-19; Z79.82 Long term (current) use of aspirin; Z79.899 Other long term (current) drug therapy
CPT/HCPCS: 71045; 80053; 82150; 82550; 82553; 83605; 83735; 83874; 83880; 84145; 84484; 85025; 85379; 85610; 85652; 85730; 86141; 87040; 87636; 93005; 93041; 99284; G0480; 36415; 80320

== ENCOUNTER → 2021-01-13 | Outpatient (CLI) | payer MEDICARE, OTHER ==
[~2021-01-13] MED LIST changes: +CATHETER FLUSH 10 ML SYR IV PRN; +METH4TAB PO; +REGADENOSON 0.4 MG/5 ML SYR (LEXISCAN) IV ONE
[2021-01-13 08:04] VITALS: BP 145/79
[2021-01-13 08:11] VITALS: BP 113/76
--- NOTE | 2021-01-15 09:43 | STRESS TEST ---
DATE OF SERVICE: RESTING AND POST REGADENOSON TECHNETIUM-99M TETROFOSMIN SPECT CT IMAGING ORDERING PHYSICIAN: Peyman Davison DO PRIMARY PHYSICIAN: Peyman Davisno DO CLINICAL DIAGNOSES: Chest discomfort, coronary artery disease. Baseline images were carried out after injection of 10.91 mCi of technetium-99m Tetrofosmin. This was followed by 0.4 mg regadenoson and 32.5 mCi of technetium-99m Tetrofosmin for stress imaging. This was carried out under Dr. Davison's supervision. The electrocardiographic portion of the study is reported separately by him. Review of images at rest and following stress does not indicate any significant perfusion defects consistent with any significant myocardial ischemia or infarction. Gated images show normal global left ventricular systolic function with normal regional wall motion. Left ventricular ejection fraction is calculated to be 70%. Left ventricular end diastolic volume 62 mL. TID is absent (1.09). CONCLUSIONS: 1. No evidence of any significant myocardial ischemia or infarction on this study. 2. Normal regional wall motion. 3. Normal global left ventricular systolic function with a calculated ejection fraction of 70%. Job ID: [id number] DocumentID: [id number] Dictated Date: 01/15/2021 09:15:13 Director Professional Services Date: 01/15/2021 09:43:04 Dictated By: CONNOR CERDA MD, MA, FACP, FACC,
== END ==
LOC: CARD 07:00
PROVIDERS: ATTEND Internal Medicine
DX: I25.10 Atherosclerotic heart disease of native coronary artery without angina pectoris (principal); I10 Essential (primary) hypertension
CPT/HCPCS: 78452; 93017; A9502

== ENCOUNTER → 2021-04-18 | Outpatient (CLI) | payer MEDICARE, OTHER ==
[~2021-04-18] MED LIST changes: -CATHETER FLUSH 10 ML SYR IV PRN; -REGADENOSON 0.4 MG/5 ML SYR (LEXISCAN) IV ONE
--- NOTE | 2021-04-18 15:22 | Diagnostic Imaging Report ---
PROCEDURE: CT abdomen and pelvis without contrast. TECHNIQUE: Multiple contiguous axial images were obtained through the abdomen and pelvis without the use of intravenous contrast. Auto Exposure Controls were utilized during the CT exam to meet ALARA standards for radiation dose reduction. INDICATION: Diverticulitis. Follow-up. COMPARISON: None. FINDINGS: The heart is unremarkable. Scattered tree-in-bud opacities are seen in the right lung base. There is hepatic steatosis. No focal hepatic lesions are seen. The gallbladder is unremarkable. The spleen, pancreas, adrenal glands, and kidneys have a normal appearance. There is no pathologically enlarged mesenteric or retroperitoneal adenopathy. The bowel loops are nondilated. Diverticulosis of the sigmoid colon is seen. No pericolonic inflammatory changes are visualized. There is no free fluid or free air. No acute osseous abnormalities. There is calcified aortic and iliac atherosclerotic plaque without aneurysm. Ureters and bladder are normal. Fiducial markers are visualized within the prostate. Small fat-containing inguinal hernia is seen on the right. There is no free air, loculated collection, or adenopathy in the pelvis. IMPRESSION: 1. Diverticulosis of the sigmoid colon without CT evidence of acute diverticulitis. 2. Hepatic steatosis. 3. Scattered tree-in-bud opacities in the right lung base, which can be seen with inflammatory or infectious process. Dictated by: Dictated on workstation # [id number]
== END ==
LOC: RAD 14:53
PROVIDERS: ATTEND Internal Medicine
DX: K57.30 Diverticulosis of large intestine without perforation or abscess without bleeding (principal); K76.0 Fatty (change of) liver, not elsewhere classified; R91.8 Other nonspecific abnormal finding of lung field
CPT/HCPCS: 74176

== ENCOUNTER → 2021-07-26 | Outpatient (CLI) | payer MEDICARE, OTHER ==
[~2021-07-26] MED LIST changes: +CATHETER FLUSH 10 ML SYR IV PRN; +HOLD METFORMIN - RECEIVED CONTRAST 20 ML VIAL IV SCH; +IOHEXOL 350 MG/ML 100 ML (OMNIPAQUE 350) VIAL IV ONE; +NS 100 ML (IVPB) BAG IV ONE
[2021-07-26 13:33] LABS: BASOPHILS % (AUTO) 0 % (0-10); EOSINOPHILS # (AUTO) 0.1 10^3/uL (0.0-0.3); EOSINOPHILS % (AUTO) 1 % (0-10); HEMATOCRIT 48 % (40-54); HEMOGLOBIN 16.2 g/dL (13.3-17.7); LYMPHOCYTES # (AUTO) 0.5 10^3/uL (1.0-4.0); LYMPHOCYTES % (AUTO) 4 % (12-44); MEAN CORPUSCULAR HEMOGLOBIN 30 pg (25-34); MEAN CORPUSCULAR HGB CONC 34 g/dL (32-36); MEAN CORPUSCULAR VOLUME 90 fL (80-99); MEAN PLATELET VOLUME 10.9 fL (9.0-12.2); MONOCYTES # (AUTO) 0.9 10^3/uL (0.0-1.0); MONOCYTES % (AUTO) 8 % (0-12); NEUTROPHILS % (AUTO) 87 % (42-75); PLATELET COUNT 191 10^3/uL (130-400); WHITE BLOOD COUNT 11.6 10^3/uL (4.3-11.0)
[2021-07-26 13:45] LABS: ALBUMIN 4.1 GM/DL (3.2-4.5)
[2021-07-26 13:46] LABS: CALCIUM 9.4 MG/DL (8.5-10.1)
[2021-07-26 13:48] LABS: TOTAL PROTEIN 6.8 GM/DL (6.4-8.2)
[2021-07-26 13:49] LABS: BILIRUBIN,TOTAL 1.7 MG/DL (0.1-1.0)
[2021-07-26 13:51] LABS: CREATININE SERUM 1.37 MG/DL (0.60-1.30)
[2021-07-26 14:08] LABS: BAND NEUTROPHILS 0 %; BASOPHILS % (MANUAL) 0 %; EOSINOPHILS % (MANUAL) 3 %; LYMPHOCYTES % (MANUAL) 3 %; MONOCYTES % (MANUAL) 12 %; NEUTROPHILS % (MANUAL) 82 %; RBC MORPH NORMAL
--- NOTE | 2021-07-26 14:27 | Diagnostic Imaging Report ---
PROCEDURE: CT abdomen and pelvis with contrast. TECHNIQUE: Multiple contiguous axial images were obtained through the abdomen and pelvis after administration of intravenous contrast. Auto Exposure Controls were utilized during the CT exam to meet ALARA standards for radiation dose reduction. All CT scans use one or more of the following dose optimizing techniques: automated exposure control, MA and/or KvP adjustment based on patient size and exam type or iterative reconstruction. INDICATION: Abdominal pain, diverticulitis COMPARISON: 04/18/2021 FINDINGS: Emphysematous changes are identified within the lung bases. Mild reticular opacities and groundglass opacities are identified within the right lower lobe, relatively stable from the prior examination. The left lung base appears clear. The liver and spleen are unremarkable besides calcified splenic granuloma. The adrenal glands are unremarkable. The pancreas is unremarkable. The gallbladder is unremarkable. The bilateral kidneys and ureters are unremarkable. No aneurysmal dilatation of the abdominal aorta with mild scattered vascular calcifications present. The urinary bladder is predominantly decompressed, therefore not well evaluated. Prostatic radiation seeds are in place. Tiny fluid-containing right inguinal hernia. Significant mural thickening with associated mucosal hyperenhancement and adjacent inflammatory stranding is identified associated with the mid descending colon extending through the sigmoid colon. The appendix is unremarkable. No bowel obstruction or pneumatosis. No significant adenopathy, free air, or free fluid in abdomen or pelvis. Scattered osseous degenerative changes without acute osseous abnormality. Marion right curvature of the thoracolumbar spine. IMPRESSION: Abnormal appearance of the mid descending colon extending through the sigmoid colon is concerning for colitis. This is of uncertain etiology, though could be infectious or inflammatory in nature. Ischemic colitis is not completely excluded though there is no pneumatosis. Emphysematous changes within the lung bases with persistent mild scarring versus infiltrate within the right lower lobe which is unchanged since March 2021. Additional findings as described above. Dictated by: Dictated on workstation # [id number]
== END ==
LOC: RAD 13:14
PROVIDERS: ATTEND Physician Assistant
DX: J43.9 Emphysema, unspecified (principal); E86.0 Dehydration; B33.8 Other specified viral diseases; K57.32 Diverticulitis of large intestine without perforation or abscess without bleeding; Z20.828 Contact with and (suspected) exposure to other viral communicable diseases
CPT/HCPCS: 36415; 74177; 80053; 82150; 83690; 85007; 85027

== ENCOUNTER → 2022-03-06 | Outpatient (CLI) | payer MEDICARE, OTHER ==
[~2022-03-06] VITALS: Ht 180.3 cm; Wt 86.0 kg
[~2022-03-06] MED LIST changes: +ALBU0.63 IH; -CATHETER FLUSH 10 ML SYR IV PRN; +CETI10CA PO; +CHOL200059 PO; +FLUT1DIS28 IH; -HOLD METFORMIN - RECEIVED CONTRAST 20 ML VIAL IV SCH; -IOHEXOL 350 MG/ML 100 ML (OMNIPAQUE 350) VIAL IV ONE; -NS 100 ML (IVPB) BAG IV ONE; +PHYT100T PO; +VIT1CAPS14 PO; +[UNRECOGNIZED DRUG - CODE] PO; +[UNRECOGNIZED DRUG - OTHER]
== END | disposition home or self-care (01) ==
LOC: PREOP 05:29
PROVIDERS: ATTEND Otolaryngology Otolaryngology/Facial Plastic Surgery
DX: Z01.818 Encounter for other preprocedural examination (principal)

== ENCOUNTER 2022-03-13 06:31 | Day surgery (SDC) | payer MEDICARE, OTHER ==
[~2022-03-13] VITALS: Ht 180.3 cm; Wt 86.8 kg
[2022-03-13] VITALS (11 sets, daily range): BP systolic 112–143; BP diastolic 67–84
[2022-03-13] MEDS ORDERED: fentaNYL INJ 100 MCG/2 ML AMP ONE (06:53)
[2022-03-13] MEDS ORDERED: MIDAZOLAM 2 MG/2 ML (VERSED) VIAL ONE ×2 (06:53→06:54)
[2022-03-13] MEDS ORDERED: proPOfol 200 MG/20 ML (DIPRIVAN) VIAL IV ONE (06:53)
[2022-03-13] MEDS ORDERED: ONDANSETRON 4 MG/2 ML (SDV) Z0FRAN ONE (06:53)
[2022-03-13] MEDS ORDERED: LIDOCAINE PF 2% 5 ML (XYLOCAINE) VIAL ONE (06:53)
[2022-03-13] MEDS ORDERED: SEVOFLURANE (ULTANE) 15 ML INHAL SOLN ONE ×2 (06:53→08:32)
[2022-03-13] MEDS: LACTATED RINGERS 1,000 ML IV PRN ×2 (07:08→08:49)
[2022-03-13] MEDS ORDERED: MUPIROCIN 2% OINT 22 GM (BACTROBAN) TUBE ONE (07:10)
[2022-03-13] MEDS ORDERED: LIDOCAINE/EPI 2% 1:200,00 (XYLOCAINE) 10 ML VIAL ONE (07:10)
[2022-03-13 07:12] LABS: BASOPHILS # (AUTO) 0.1 10^3/uL (0.0-0.1); BASOPHILS % (AUTO) 1 % (0-10); EOSINOPHILS # (AUTO) 0.3 10^3/uL (0.0-0.3); EOSINOPHILS % (AUTO) 5 % (0-10); HEMATOCRIT 48 % (40-54); HEMOGLOBIN 15.9 g/dL (13.3-17.7); LYMPHOCYTES # (AUTO) 1.1 10^3/uL (1.0-4.0); LYMPHOCYTES % (AUTO) 17 % (12-44); MEAN CORPUSCULAR HEMOGLOBIN 30 pg (25-34); MEAN CORPUSCULAR HGB CONC 33 g/dL (32-36); MEAN CORPUSCULAR VOLUME 91 fL (80-99); MEAN PLATELET VOLUME 11.2 fL (9.0-12.2); MONOCYTES # (AUTO) 0.8 10^3/uL (0.0-1.0); MONOCYTES % (AUTO) 13 % (0-12); NEUTROPHILS # (AUTO) 4.1 10^3/uL (1.8-7.8); NEUTROPHILS % (AUTO) 64 % (42-75); PLATELET COUNT 188 10^3/uL (130-400); WHITE BLOOD COUNT 6.4 10^3/uL (4.3-11.0)
[2022-03-13 07:32] LABS: CALCIUM 9.3 MG/DL (8.5-10.1); CREATININE SERUM 1.33 MG/DL (0.60-1.30); POTASSIUM 4.3 MMOL/L (3.6-5.0)
--- NOTE | 2022-03-13 07:32 | Progress Note-Pre Operative ---
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
[2022-03-13] MEDS ORDERED: MUPIROCIN 2% OINT 22 GM (BACTROBAN) TUBE TOP ONE (08:19)
[2022-03-13] MEDS ORDERED: LIDOCAINE/EPI 2% 1:200,00 (XYLOCAINE) 10 ML VIAL INJ ONE (08:20)
--- NOTE | 2022-03-13 08:28 | Progress Note-Post Operative ---
Post-Operative Progess Note Surgeon (s)/Research Food Technologist (s) Surgeon RACHNA NGUYEN MD Research Food Technologist n/a Pre-Operative Diagnosis Squamous Cell Carcinoma of Right Antihelix-Ear Post-Operative Diagnosis same Post-Op Procedure Note Date of Procedure: Mar 13, 2022 Name of Procedure Performed: Excision of SCCA Right Antihelix-Ear, Reconstruction with FTSG, Donor Site-Right PreAuricular Region Description & Findings Description and Findings: n/a Anesthesia Type lma Estimated Blood Loss minimal Packing none. Specimen(s) collected/removed right antihelix lesion for frozen section RACHNA NGUYEN MD Mar 13, 2022 08:28
[2022-03-13] MEDS ORDERED: ACETAMINOPHEN 325 MG TABLET PO PRN (08:30)
[2022-03-13] MEDS ORDERED: HYDROcodone/APAP 5 MG/325 MG (LORTAB) TAB PO PRN (08:30)
[2022-03-13] MEDS ORDERED: ONDANSETRON 4 MG/2 ML (SDV) Z0FRAN IVP PRN (08:45)
[2022-03-13] MEDS ORDERED: HYDROmorphone 2 MG/ML VIAL (DILAUDID) IV ONE (08:45)
--- NOTE | 2022-03-13 09:36 | Anesthesia-General Post-Op ---
General Patient Condition Mental Status/LOC: Same as Preop Cardiovascular: Satisfactory Nausea/Vomiting: Absent Respiratory: Satisfactory Pain: Controlled Complications: Absent Post Op Complications Complications None Follow Up Care/Instructions Patient Instructions None needed. Anesthesia/Patient Condition Patient Condition Patient is doing well, no complaints, stable vital signs, no apparent adverse anesthesia problems. No complications reported per nursing. [place] [facility] [place] Yes TL DENNIS CRNA Mar 13, 2022 09:36
[2022-03-13] MEDS ORDERED: ACHD5005 PO (09:48)
[2022-03-13] MEDS ORDERED: CEPH500T PO (09:48)
== END 2022-03-13 11:05 ==
LOC: SDC 06:31
PROVIDERS: ATTEND Otolaryngology Otolaryngology/Facial Plastic Surgery
DX: C44.222 Squamous cell carcinoma of skin of right ear and external auricular canal (principal); L57.0 Actinic keratosis; F17.210 Nicotine dependence, cigarettes, uncomplicated
CPT/HCPCS: 36415; 80048; 85025; 87081

== ENCOUNTER → 2022-04-22 | Outpatient (CLI) | payer MEDICARE, OTHER ==
[~2022-04-22] MED LIST changes: +ACHD5005 PO; +CEPH500T PO
== END ==
LOC: RAD 11:14
PROVIDERS: ATTEND Nurse Practitioner Family
DX: I73.89 Other specified peripheral vascular diseases (principal)

== ENCOUNTER 2022-09-19 07:28 | Inpatient (IN) | payer MEDICARE, OTHER ==
[~2022-09-19] VITALS: Ht 180 cm; Wt 91.2 kg
[2022-09-19 07:53] LABS: BASOPHILS # (AUTO) 0.1 10^3/uL (0.0-0.1); BASOPHILS % (AUTO) 0 % (0-10); EOSINOPHILS # (AUTO) 0.1 10^3/uL (0.0-0.3); EOSINOPHILS % (AUTO) 0 % (0-10); HEMATOCRIT 54 % (40-54); HEMOGLOBIN 17.6 g/dL (13.3-17.7); LYMPHOCYTES # (AUTO) 1.4 10^3/uL (1.0-4.0); LYMPHOCYTES % (AUTO) 6 % (12-44); MEAN CORPUSCULAR HEMOGLOBIN 30 pg (25-34); MEAN CORPUSCULAR HGB CONC 33 g/dL (32-36); MEAN CORPUSCULAR VOLUME 93 fL (80-99); MEAN PLATELET VOLUME 11.2 fL (9.0-12.2); MONOCYTES # (AUTO) 1.6 10^3/uL (0.0-1.0); MONOCYTES % (AUTO) 6 % (0-12); NEUTROPHILS # (AUTO) 22.1 10^3/uL (1.8-7.8); NEUTROPHILS % (AUTO) 87 % (42-75); PLATELET COUNT 221 10^3/uL (130-400); WHITE BLOOD COUNT 25.5 10^3/uL (4.3-11.0)
--- NOTE | 2022-09-19 07:55 | ED Respiratory ---
General Chief Complaint: Respiratory Problems Stated Complaint: SOA Nursing Triage Note: PT AMB TO RM 6 PT CO OF SOA, HAS HX OF COPD. PT HAVING LABORED BREATHING RR 48, COLOR PALE LÓPEZ, HAS OCC PROD COUGH W YELLOW SPUTUM. PT HAS USED INHALERS THIS AM. STATES TOOK A PREDNISONE THIS AM. DENIES FEVERS. PT HAVING AIR HUNGER AND DIFF TALKING WHEN ARRIVED IN Source: patient Exam Limitations: no limitations History of Present Illness Date Seen by Provider: Sep 19, 2022 Time Seen by Provider: 07:39 Initial Comments Patient is a 77-year-old male who presents to the emergency room with a chief complaint of worsening shortness of breath. Patient has a history of COPD, uses inhalers and nebulizer at home. He states over the last week he has become more short of breath, his primary care physician called in some prednisone on which she started. He states that he did not sleep well last night. His last breathing treatment was at 7 AM when he woke up this morning. He has had cough with nebulizer treatments productive of a light yellow sputum. He denies hemoptysis. No fevers or chills. No chest pain associated with the shortness of breath. He does have 1 prior stent placed. He is not a diabetic. Per LINDA Jin and the patient's nurse he was in quite a bit of distress when he first ambulated into the department. He does not wear home oxygen. She describes him as cyanotic, eller in color. Tachypneic in the 40s. Initial room air sats around 90%. Had difficulty speaking in complete sentences. By the time I walked in the room he was on 2 L of oxygen per nasal cannula still slightly tachypneic at 30 breaths a minute but breathing much better. Diminished breath sounds throughout fairly "tight". No pain. Patient denies a history of admissions for COPD exacerbations in the past. He quit smoking 8 years ago. Able to speak in complete sentences at this time. Per med reconciliation on Doxycycline 09/04 for 7 days and in mid July on a cou rse of 10 days Augmentin Timing/Duration: week, getting worse Severity: severe ((initially - at time of my eval - improved a little)) Prior Episodes/Possible Cause: occasional episodes Modifying Factors: Improves With Albuterol Inhaler, Improves With Albuterol Nebulizer Associated Symptoms: lightheadedness, shortness of breath Allergies and Home Medications Allergies Coded Allergies: No Known Drug Allergies (Unverified , 03/13/22) Patient Home Medication List Home Medication List Reviewed: Yes Albuterol Sulfate (Albuterol Sulfate) 0.63 Mg/3 Ml Vial.neb, 0.63 MG IH UD, (Reported) Entered as Reported by: AMADO REES on 03/06/22 160 Ascorbic Acid (Vitamin C) 120 Gm Powder, 120 GM PO UD, (Reported) Entered as Reported by: AMADO REES on 03/06/22 160 Cephalexin (Cephalexin) 500 Mg Tablet, 500 MG PO TID Prescribed by: RAUL RAMOS on 03/13/22 0948 Cetirizine HCl (Zyrtec) 10 Mg Capsule, 10 MG PO DAILY, (Reported) Entered as Reported by: AMADO REES on 03/06/22 160 Cholecalciferol (Vitamin D3) (Vitamin D3) 50 Mcg (2000 Unit) Tablet, PO UD, (Reported) Entered as Reported by: AMADO REES on 03/06/22 160 Fluticasone/Salmeterol (Advair 100-50 Diskus) 100 Mcg-50 Mcg/Dose Blst.w.dev, 1 EACH IH BID, (Reported) Entered as Reported by: AMADO REES on 03/06/22 160 Hydrocodone/Acetaminophen (Hydrocodone-Acetamin 5-325 mg) 5 Mg-325 Mg Tablet, 1 TAB PO Q4H PRN for PAIN-MODERATE (5-7) Prescribed by: RAUL RAMOS on 03/13/22 0948 Metoprolol Succinate (Metoprolol Succinate) 25 Mg Tab.er.24h, 25 MG PO DAILY, (Reported) Entered as Reported by: MEET ORONA on 08/09/17 1216 Pantoprazole Sodium (Protonix) 40 Mg Tablet.dr, 40 MG PO DAILY, (Reported) Entered as Reported by: JESSICA HAMMER on 06/30/16 0828 Phytonadione (Vitamin K) 100 Mcg Tablet, 100 MCG PO UD, (Reported) Entered as Reported by: AMADO REES on 03/06/22 160 Vit C/E/Cuperic/Zinc/Lutein (Preservision Lutein Softgel) 226 Mg-90 Mg-0.8 Mg- 34.8 Mg-5 Mg Capsule, 1 EACH PO UD, (Reported) Entered as Reported by: AMADO REES on 03/06/221607 [Optimizer Otc] , UD, (Reported) Entered as Reported by: AMADO REES on 03/06/221607 Review of Systems Review of Systems Constitutional: see HPI EENTM: no symptoms reported Respiratory: cough, phlegm, short of breath Cardiovascular: no symptoms reported Gastrointestinal: no symptoms reported Genitourinary: no symptoms reported Musculoskeletal: no symptoms reported Skin: no symptoms reported Psychiatric/Neurological: Anxiety All Other Systems Reviewed Negative Unless Noted: Yes Past Qzskmxw-Hyomqu-Hueraf Hx Patient Social History Tobacco Use?: No Smoking Status: Former Smoker Substance use?: No Alcohol Use?: No Pt feels they are or have been: No Immunizations Up To Date Influenza Vaccine Up-to-Date: Yes; Up-to-Date First/Initial COVID19 Vaccinat: 2020 Second COVID19 Vaccination Cornelio: 2020 Third COVID19 Vaccination Date: 2021 Seasonal Allergies Seasonal Allergies: No Past Medical History Surgery/Hospitalization HX: CARDIAC CATH WITH STENT IN 2011, COPD Surgeries: Yes (PROSTATE, HERNIA) Coronary Stent Respiratory: Yes (USES INHALER AND NEBULIZERS) COPD Currently Using CPAP: No Currently Using BIPAP: No Cardiac: Yes Coronary Artery Disease, Heart Attack, High Cholesterol, Hypertension Neurological: No Reproductive Disorders: No Sexually Transmitted Disease: No HIV/AIDS: No Genitourinary: Yes (PROSTATE CANCER--S/P SURGERY) Prostate Problems Gastrointestinal: Yes Gastroesophageal Reflux, Polyps Musculoskeletal: No Endocrine: No HEENT: No Loss of Vision: Bilateral Hearing Impairment: Denies Cancer: Yes Prostate, Skin Did You Recieve Any Treatments: Yes What Type of Treatment Did You: Surgical Intervention Psychosocial: No Integumentary: Yes (SKIN CANCER) Psoriasis Blood Disorders: No Adverse Reaction/Blood Tranf: No (HAS HAD BLOOD WITH NO REACTION) Physical Exam Vital Signs - First Documented 09/19/22 09/19/22 07:30 08:01 Temp 36.1 Pulse 102 Resp 48 B/P (MAP) 173/106 (128) Pulse Ox 91 O2 Delivery Room Air O2 Flow Rate 1.50 Capillary Refill : Less Than 3 Seconds Height: 5'11.00" Weight: 209lbs. 0.0oz. 94.625035wd; 27.00 BMI Method: General Appearance: mild distress, thin Eyes: Bilateral Eye Normal Inspection, Bilateral Eye PERRL, Bilateral Eye EOMI HEENT: PERRL/EOMI Neck: normal inspection Respiratory: other (Diminished breath sounds throughout, mild distress; Supplemented at 2L per NC oxygen) Cardiovascular: regular rate, rhythm, tachycardia Gastrointestinal: non tender, soft Extremities: normal range of motion, normal inspection, no pedal edema, normal capillary refill Neurologic/Psychiatric: no motor/sensory deficits, alert, oriented x 3, other (Anxious) Skin: normal color, warm/dry Focused Exam Time of Focused Exam: 09:18 Respiratory: Wheezing (scatted light exp wheeze), Other (slight tachymnea with slight conversational dyspnea (much improved over presentation)) Cardiovascular: Regular Rate, Rhythm, Normal Peripheral Pulses Capillary Refill: Less Than 3 Seconds Peripheral Pulses: 2+ Radial Pulses (R), 2+ Radial Pulses (L) Skin: normal color, warm/dry Within 3hrs of presentation: Admin fluids, Admin ABX, Blood cultures prior to ABX's, Focus exam, Lactate level Progress/Results/Core Measures Suspected Sepsis SIRS Temperature: Pulse: 102 Respiratory Rate: 48 Laboratory Tests 09/19/22 07:35: White Blood Count 25.5H Blood Pressure 173 /106 Mean: 128 Laboratory Tests 09/19/22 07:35: Creatinine 1.21, Platelet Count 221 Results/Orders Lab Results Laboratory Tests Test 09/19/22 07:35 Range/Units White Blood Count 25.5 H 4.3-11.0 10^3/uL Red Blood Count 5.79 H 4.30-5.52 10^6/uL Hemoglobin 17.6 13.3-17.7 g/dL Hematocrit 54 40-54 % Mean Corpuscular Volume 93 80-99 fL Mean Corpuscular Hemoglobin 30 25-34 pg Mean Corpuscular Hemoglobin Concent 33 32-36 g/dL Red Cell Distribution Width 13.3 10.0-14.5 % Platelet Count 221 130-400 10^3/uL Mean Platelet Volume 11.2 9.0-12.2 fL Immature Granulocyte % (Auto) 1 % Neutrophils (%) (Auto) 87 H 42-75 % Lymphocytes (%) (Auto) 6 L 12-44 % Monocytes (%) (Auto) 6 0-12 % Eosinophils (%) (Auto) 0 0-10 % Basophils (%) (Auto) 0 0-10 % Neutrophils # (Auto) 22.1 H 1.8-7.8 10^3/uL Lymphocytes # (Auto) 1.4 1.0-4.0 10^3/uL Monocytes # (Auto) 1.6 H 0.0-1.0 10^3/uL Eosinophils # (Auto) 0.1 0.0-0.3 10^3/uL Basophils # (Auto) 0.1 0.0-0.1 10^3/uL Immature Granulocyte # (Auto) 0.2 H 0.0-0.1 10^3/uL Neutrophils % (Manual) 90 % Lymphocytes % (Manual) 6 % Monocytes % (Manual) 3 % Eosinophils % (Manual) 1 % Blood Morphology Comment NORMAL Sodium Level 141 135-145 MMOL/L Potassium Level 4.0 3.6-5.0 MMOL/L Chloride Level 101 98-107 MMOL/L Carbon Dioxide Level 28 21-32 MMOL/L Anion Gap 12 5-14 MMOL/L Blood Urea Nitrogen 24 H 7-18 MG/DL Creatinine 1.21 0.60-1.30 MG/DL Estimat Glomerular Filtration Rate 62 BUN/Creatinine Ratio 20 Glucose Level 95 70-105 MG/DL Calcium Level 9.6 8.5-10.1 MG/DL My Orders Orders - ANITRA GUILLORY MD Ed Iv/Invasive Line Start (09/19/22 07:47) Cbc With Automated Diff (09/19/22 07:47) Basic Metabolic Panel (09/19/22 07:47) Chest 1 View, Ap/Pa Only (09/19/22 07:47) Arterial Blood Gas (09/19/22 07:47) Communication For Respiratory (09/19/22 07:47) Albuterol/Ipra Inhalation Soln (Duoneb I (09/19/22 08:00) Svn Small Volume Nebulizer (09/19/22 07:47) Methylprednisolone Sod Succ (Solu-Medrol (09/19/22 08:00) Manual Differential (09/19/22 07:35) Ns Iv 1000 Ml (Sodium Chloride 0.9%) (09/19/22 08:26) Cefepime Injection (Maxipime Injection) (09/19/22 09:15) Sputum Culture (09/19/22 09:10) Blood Culture (09/19/22 09:14) Urinalysis (09/19/22 09:14) Urine Culture (09/19/22 09:14) Protime With Inr (09/19/22 09:14) Partial Thromboplastin Time (09/19/22 09:14) Ed Iv/Invasive Line Start (09/19/22 09:14) Ed Iv/Invasive Line Start (09/19/22 09:14) Vital Signs Adult Sepsis Patie Q15M (09/19/22 09:14) O2 (09/19/22 09:14) Remove Rings In Anticipation O (09/19/22 09:14) Lactic Acid Analyzer (09/19/22 09:14) Medications Given in ED Current Medications Medications Dose Ordered Sig/Roxanne Route Start Time Stop Time Status Last Admin Dose Admin Albuterol/ Ipratropium 3 ml ONCE ONCE INH 09/19/22 08:00 09/19/22 08:01 DC 09/19/22 08:01 3 ML Methylprednisolone Sodium Succinate 125 mg ONCE ONCE IVP 09/19/22 08:00 09/19/22 08:01 DC 09/19/22 07:57 125 MG Vital Signs/I&O 09/19/22 09/19/22 07:30 08:01 Temp 36.1 Pulse 102 Resp 48 B/P (MAP) 173/106 (128) Pulse Ox 91 98 O2 Delivery Room Air Nasal Cannula O2 Flow Rate 1.50 Capillary Refill : Less Than 3 Seconds Blood Pressure Mean: 128 Progress Note : Time: 09:18 Progress Note Patient seen and evaluated by me. Evaluation today includes physical exam, single view chest x-ray, CBC, basic metabolic panel, ABG. Pertinent physical exam findings well-developed male slightly thin mild distress due to shortness of breath. Alert and oriented. Heart is regular, tachycardic lungs diminished throughout with overall poor air movement. Mild respiratory distress. Abdomen is soft, nontender. No lower extremity edema is noted. No rashes. Patient is slightly hypertensive. Oxygen saturations on 2 L per nasal cannula 91 to 94%. Differential diagnosis based on history and physical exam, acute exacerbation of COPD, pneumonia, pulmonary embolism. Labs and imaging independently reviewed by me, chest x-ray patchy right lower lobe infiltrate. CBC shows a white count of 25,000 with a left shift. Chemistry is within normal limits. ABG is still pending at the time of this dictation. Per review of the medical record, specifically medicine reconciliation the patient has been on both doxycycline and Augmentin within the last 60 days. He will be started on pneumonia pathway, cefepime 1 g every 6 hours. He is treated in the emergency room with [id number] DuoNebs, IV fluids. He was given 125mg Solumedrol as well. Not requiring BiPAP at this time. Case is discussed with on for the hospitalist service. She requests that the sepsis protocol labs be ordered to include blood cultures, lactic acid UA/urine culture, sputum culture. Patient is reevaluated and improved at the time of this dictation. He still has mild conversational dyspnea however his oxygen saturations are 97 to 98% on 2 L. Improved breath sounds overall with scattered expiratory wheeze. Feels much better. I explained to him the need for admission at this time. He verbalized understanding and agreement of the plan of care. Diagnostic Imaging Diagonstic Imaging: Xray Plain Films/CT/US/NM/MRI: chest Comments [facility] [place], [place] NAME: PAUL ALVARADO [facility] REC#: [id number] PT STATUS: REG ER : 1945 PHYSICIAN: ANITRA GUILLORY MD ADMIT DATE: 09/19/22/ER Draft Date of Exam:09/19/22 CHEST 1 VIEW, AP/PA ONLY INDICATION: Shortness of air and COPD. Time of Exam: 8:04 AM Correlation is made prior chest 12/17/2020. The heart size normal. Patient has developed infiltrate right base consistent with pneumonia. Left lung is clear. There is no effusion or pneumothorax. IMPRESSION: Right basilar pneumonia. Dictated on workstation # [id number] Dict: 09/19/22810 Trans: 09/19/22828 [facility] [id number] Interpreted by: JUAN PABLO BALL MD Electronically signed by: Departure Communication (Admissions) Time/Spoke to Admitting Phy: 09:[address] Laguerre (hospitalist) requests Sepsis labs be completed; ok for 4th floor Impression Primary Impression: COPD exacerbation Additional Impression: Pneumonia Qualified Codes: J18.9 - Pneumonia, unspecified organism Disposition: ADMITTED INPATIENT Condition: Improved Admissions Decision to Admit Reason: Admit from ER (General) Decision to Admit/Date: Sep 19, 2022 Time/Decision to Admit Time: 09:24 Departure-Patient Inst. Referrals: ALE VENEGAS DO (PCP/Family) Primary Care Physician ANITRA GUILLORY MD Sep 19, 2022 07:55
[2022-09-19 07:59] LABS: CALCIUM 9.6 MG/DL (8.5-10.1)
[2022-09-19] MEDS ORDERED: RT-ALBUTEROL/IPRATROPIUM 3 ML (DUONEB) VIAL INH ONE (08:00)
[2022-09-19] MEDS ORDERED: methylPREDNISolone 125 MG (Solu-MEDROL) VIAL IVP ONE (08:00)
[2022-09-19 08:03] LABS: CREATININE SERUM 1.21 MG/DL (0.60-1.30)
[2022-09-19 08:14] LABS: EOSINOPHILS % (MANUAL) 1 %; LYMPHOCYTES % (MANUAL) 6 %; MONOCYTES % (MANUAL) 3 %; NEUTROPHILS % (MANUAL) 90 %; RBC MORPH NORMAL
[2022-09-19] MEDS ORDERED: NS IV 1000 ML 1,000 ML IV STA (08:26)
--- NOTE | 2022-09-19 08:30 | Diagnostic Imaging Report ---
INDICATION: Shortness of air and COPD. Time of Exam: 8:04 AM Correlation is made prior chest 12/17/2020. The heart size normal. Patient has developed infiltrate right base consistent with pneumonia. Left lung is clear. There is no effusion or pneumothorax. IMPRESSION: Right basilar pneumonia. Dictated by: Dictated on workstation # [id number]
[2022-09-19] MEDS ORDERED: CEFEPIME INJECTION 1,000 MG in NS (IVPB) 50 ML IV ONE (09:15)
[2022-09-19 09:24] LABS: ABG BASE EXCESS 5.3 MMOL/L (-2.5-2.5); ABG PCO2 49 MMHG (35-45); ABG PO2 69 MMHG (79-93); ABG TCO2 31.6 MMOL/L (21.0-31.0)
[2022-09-19 09:26] LABS: ABG OXYGEN SATURATION 84 % (94-100); ALLENS TEST YES-POS; INSPIRED O2 2L; PATIENT TEMP 36.1; VENTILATOR NO
[2022-09-19 09:50] LABS: ABG BASE EXCESS 3.8 MMOL/L (-2.5-2.5); ABG OXYGEN SATURATION 97 % (94-100); ABG PCO2 43 MMHG (35-45); ABG PH 7.43 (7.37-7.43); ABG PO2 82 MMHG (79-93); ABG TCO2 29.3 MMOL/L (21.0-31.0)
[2022-09-19 09:51] LABS: ALLENS TEST YES-POS; INSPIRED O2 1.5L; PATIENT TEMP 36.5; VENTILATOR NO
[2022-09-19 10:09] LABS: PROTHROMBIN TIME PATIENT 13.8 SEC (12.2-14.7)
[2022-09-19] MEDS ORDERED: ONDANSETRON 4 MG/2 ML (SDV) Z0FRAN IV PRN (10:45)
[2022-09-19] MEDS ORDERED: ANTACID SUSP 30 ML UDC (MYLANTA) PO PRN (10:45)
[2022-09-19] MEDS ORDERED: MILK OF MAGNESIA 400 MG/5 ML 30 ML UDC PO PRN (10:45)
[2022-09-19 12:12] VITALS: BP 146/67
[2022-09-19] MEDS: methylPREDNISolone 125 MG (Solu-MEDROL) VIAL IV SCH ×3 (12:43→23:15)
--- NOTE | 2022-09-19 12:55 | History & Physical-Hospitalist ---
History of Present Illness HPI/Chief Complaint Patient is a 77-year-old male with past medical history of COPD, hypertension, coronary artery disease who presented to the emergency department due to shortness of breath. He reports he has been feeling sick for about a week. He called his primary care physician on September 17 due to his shortness of breath and cough and he was called and a course of prednisone. He has been compliant with that along with his inhalers but continued to worsen. He is attempting to move near [facility] by the [facility] but was unable to keep up and so came into the emergency department for evaluation. In the ER he was quite tachypneic in the 40s but only marginally hypoxic. He was placed on 2 L of oxygen and this seemed to help him quite a bit per the emergency department. He also got [id number] DuoNeb treatments which improved his breathing even further. Given he had already attempted outpatient management and that he was in such significant respiratory distress upon arrival decision was made to admit. Chest x-ray also showed a right sided basilar pneumonia. Patient reports feeling much better since he has gotten to the fourth floor and he is actually quite anxious to leave. He is agreeable to stay until tomorrow but he is hoping to continue on with his travels as his and nephew have already continued towards her new home. We discussed that discharge disposition will be based off of how he is doing. Source: patient Date Seen 09/19/22 Time Seen by a Provider: 10:45 Attending Physician Peyman Davison DO PCP Admitting Physician: Eugenio Laguerre MD Attending Physician: Eugenio Laguerre MD Referring Physician Date of Admission Sep 19, 2022 at 10:22 Home Medications & Allergies Home Medications Reviewed patient Home Medication Reconciliation performed by pharmacy medication reconciliations tattoo technician and/or nursing. Patients Allergies have been reviewed. Allergies Allergies Coded Allergies No Known Drug Allergies (Txiigffivk94/14/22) Past Srgbbdi-Coixbn-Esacdi Hx Patient Social History Marrital Status: Tobacco Use?: No Smoking Status: Former Smoker Use of E-Cig and/or Vaping dev: No Substance use?: No Alcohol Use?: No Pt feels they are or have been: No Immunizations Up To Date Date of Influenza Vaccine: Mar 06, 2022 First/Initial COVID19 Vaccinat: 2020 Second COVID19 Vaccination Cornelio: 2020 Date of Pneumonia Vaccine: Mar 15, 2017 Seasonal Allergies Seasonal Allergies: No Current Status Advance Directives: No Communicates: Verbally Primary Language: Moldovan Preferred Spoken Language: Moldovan Is interpretation needed?: No Implanted or Applied Medical D: Stents Past Medical History Surgeries: Coronary Stent COPD Currently Using CPAP: No Currently Using BIPAP: No Coronary Artery Disease, Heart Attack, High Cholesterol, Hypertension Sexually Transmitted Disease: No HIV/AIDS: No Prostate Problems Gastroesophageal Reflux, Polyps Loss of Vision: Bilateral Hearing Impairment: Denies Prostate, Skin Did You Recieve Any Treatments: Yes What Type of Treatment Did You: Surgical Intervention Psoriasis Blood Disorders: No Adverse Reaction/Blood Tranf: No (HAS HAD BLOOD WITH NO REACTION) Review of Systems Constitutional: see HPI Physical Exam Physical Exam Vital Signs Vital Signs - First Documented 09/19/22 07:30 Temp 36.1 Pulse 102 Resp 48 B/P (MAP) 173/106 (128) Pulse Ox 91 O2 Delivery Room Air O2 Flow Rate 2.00 Capillary Refill : Less Than 3 Seconds Height, Weight, BMI Height: 5'11.00" Weight: 209lbs. 0.0oz. 94.293760it; 27.77 BMI Method: General Appearance: No Apparent Distress, WD/WN, Chronically ill Respiratory: Lungs Clear, No Accessory Muscle Use Cardiovascular: Regular Rate, Rhythm, No Murmur Gastrointestinal: Normal Bowel Sounds, Non Tender, Soft Extremity: No Pedal Edema Neurologic/Psychiatric: Alert, Oriented x3 Results Results/Procedures Labs Laboratory Tests 09/19/22 07:35 09/20/22 08:59 Patient resulted labs reviewed. Imaging: Reviewed Imaging Report Imaging [facility], [place] NAME: PAUL ALVARADO [facility] REC#: [id number] PT STATUS: REG ER : 1945 PHYSICIAN: ANITRA GUILLORY MD ADMIT DATE: 09/19/22/ER Draft Date of Exam:09/19/22 CHEST 1 VIEW, AP/PA ONLY INDICATION: Shortness of air and COPD. Time of Exam: 8:04 AM Correlation is made prior chest 12/17/2020. The heart size normal. Patient has developed infiltrate right base consistent with pneumonia. Left lung is clear. There is no effusion or pneumothorax. IMPRESSION: Right basilar pneumonia. Dictated on workstation # [id number] Dict: 09/19/22810 Trans: 09/19/2229 [facility] [id number] Interpreted by: JUAN PABLO BALL MD Electronically signed by: Assessment/Plan Admission Diagnosis COPD Exacerbation due to pneumonia Admission Status: Inpatient Order (span 2 midnights) Reason for Inpatient Admission: see below Assessment and Plan Acute hypoxic respiratory failure due to COPD Exacerbation and pneumonia Continue steroids Continue IV abx MAT protocol Does meet sepsis criteria but likely due to home steroids use and respiratory distress Continue Cefepime CAD HTN HLD Follows with Dr Crawford Continue home metoprolol h/o prostate cancer No acute needs Diagnosis/Problems Diagnosis/Problems (1) Pneumonia Status: Acute Qualifiers: Pneumonia type: due to unspecified organism Laterality: right Lung location: lower lobe of lung Qualified Codes: J18.9 - Pneumonia, unspecified organism (2) COPD exacerbation Status: Acute EUGENIO LAGUERRE MD Sep 19, 2022 12:55
[2022-09-19] MEDS: RT-ALBUTEROL/IPRATROPIUM 3 ML (DUONEB) VIAL IH SCH ×3 (14:00→21:51)
[2022-09-19] MEDS ORDERED: RT-ALBUTEROL SULF 2.5 MG/3 ML PRE-MIX VIAL INH SCH (14:00)
[2022-09-19] MEDS ORDERED: RT-ALBUTEROL SULF 2.5 MG/3 ML PRE-MIX VIAL INH PRN (14:00)
[2022-09-19 16:09] VITALS: BP 129/63
[2022-09-19] MEDS: CEFEPIME INJECTION 1,000 MG in NS (IVPB) 50 ML IV SCH ×2 (17:13→23:15)
[2022-09-19 19:56] VITALS: BP 123/62
[2022-09-19] MEDS ORDERED: ADVAIR HFA 115/21 MCG INHALER 8 GM IH SCH (21:00)
[2022-09-19] MEDS: BENZONATATE 100 MG (TESSALON) CAPSULE PO PRN (21:22)
[2022-09-19] MEDS: MELATONIN 3 MG TABLET PO PRN (21:22)
[2022-09-19] MEDS: RT--FLUTICASONE/SALMETEROL 113-14 (AIRDUO RespiCLICK) IH SCH (21:26)
[2022-09-19] MEDS ORDERED: ASPI-999 PO (21:29)
[2022-09-19] MEDS ORDERED: PRAV40TA2 PO (21:32)
[2022-09-20] VITALS (7 sets, daily range): BP systolic 117–132; BP diastolic 64–97
[2022-09-20] MEDS: RT-ALBUTEROL/IPRATROPIUM 3 ML (DUONEB) VIAL IH SCH ×5 (02:28→21:13)
[2022-09-20] MEDS: CEFEPIME INJECTION 1,000 MG in NS (IVPB) 50 ML IV SCH ×4 (04:36→22:35)
[2022-09-20] MEDS: RT--FLUTICASONE/SALMETEROL 113-14 (AIRDUO RespiCLICK) IH SCH ×2 (06:48→21:14)
[2022-09-20 09:12] LABS: BASOPHILS % (AUTO) 0 % (0-10); EOSINOPHILS % (AUTO) 0 % (0-10); HEMATOCRIT 45 % (40-54); HEMOGLOBIN 14.9 g/dL (13.3-17.7); LYMPHOCYTES # (AUTO) 0.5 10^3/uL (1.0-4.0); LYMPHOCYTES % (AUTO) 2 % (12-44); MEAN CORPUSCULAR HEMOGLOBIN 31 pg (25-34); MEAN CORPUSCULAR HGB CONC 33 g/dL (32-36); MEAN CORPUSCULAR VOLUME 92 fL (80-99); MEAN PLATELET VOLUME 11.9 fL (9.0-12.2); MONOCYTES # (AUTO) 0.7 10^3/uL (0.0-1.0); MONOCYTES % (AUTO) 3 % (0-12); NEUTROPHILS # (AUTO) 25.9 10^3/uL (1.8-7.8); NEUTROPHILS % (AUTO) 95 % (42-75); PLATELET COUNT 206 10^3/uL (130-400); WHITE BLOOD COUNT 27.4 10^3/uL (4.3-11.0)
[2022-09-20 09:17] LABS: POTASSIUM 4.4 MMOL/L (3.6-5.0)
[2022-09-20 09:18] LABS: CALCIUM 9.4 MG/DL (8.5-10.1)
[2022-09-20 09:22] LABS: CREATININE SERUM 1.1 MG/DL (0.60-1.30)
[2022-09-20] MEDS: predniSONE 20 MG TAB PO SCH (09:39)
--- NOTE | 2022-09-20 10:09 | Progress Note - Hospitalist ---
Subjective HPI/CC On Admission Date Seen by Provider: Sep 20, 2022 Patient is a 77-year-old male with past medical history of COPD, hypertension, coronary artery disease who presented to the emergency department due to shortness of breath. He reports he has been feeling sick for about a week. He called his primary care physician on September 17 due to his shortness of breath and cough and he was called and a course of prednisone. He has been compliant with that along with his inhalers but continued to worsen. He is attempting to move near [place] by the [facility] but was unable to keep up and so came into the emergency department for evaluation. In the ER he was quite tachypneic in the 40s but only marginally hypoxic. He was placed on 2 L of oxygen and this seemed to help him quite a bit per the emergency department. He also got [id number] DuoNeb treatments which improved his breathing even further. Given he had already attempted outpatient management and that he was in such significant respiratory distress upon arrival decision was made to admit. Chest x-ray also showed a right sided basilar pneumonia. Patient reports feeling much better since he has gotten to the fourth floor and he is actually quite anxious to leave. He is agreeable to stay until tomorrow but he is hoping to continue on with his travels as his and nephew have already continued towards her new home. We discussed that discharge disposition will be based off of how he is doing. Subjective/Events-last exam Pt reports feeling better today but still on oxygen. Was up walking but got pretty SOB with that. Feels better with oxygen on. Focused Exam Lactate Level 09/19/22 09:20: Lactic Acid Level 1.19 Time of Focused Exam: 917 Objective Exam Vital Signs Vital Signs Date Time Temp Pulse Resp B/P (MAP) Pulse Ox O2 Delivery O2 Flow Rate FiO2 09/20/22 08:28 36.2 82 18 120/70 (87) 93 Room Air 09/20/22 06:49 0.00 Capillary Refill : Less Than 3 Seconds General Appearance: No Apparent Distress, Chronically ill Respiratory: No Accessory Muscle Use; No Crackles; Decreased Breath Sounds Cardiovascular: Regular Rate, Rhythm, No Murmur Gastrointestinal: Normal Bowel Sounds, Soft Neurologic/Psychiatric: Alert, Oriented x3 Results/Procedures Lab Laboratory Tests 09/20/22 08:59 Patient resulted labs reviewed. Imaging: Reviewed Imaging Report Assessment/Plan Assessment and Plan Assess & Plan/Chief Complaint Acute hypoxic respiratory failure due to COPD Exacerbation and pneumonia Continue steroids Sputum with GNR MAT protocol Does meet sepsis criteria but likely due to home steroids use and respiratory distress Continue Cefepime Wean oxygen as able Hopefully home tomorrow CAD HTN HLD Follows with Dr Crawford Continue home metoprolol h/o prostate cancer No acute needs Diagnosis/Problems Diagnosis/Problems (1) Pneumonia Status: Acute Qualifiers: Pneumonia type: due to unspecified organism Laterality: right Lung lo cation: lower lobe of lung Qualified Codes: J18.9 - Pneumonia, unspecified organism (2) COPD exacerbation Status: Acute EUGENIO LOZANO MD Sep 20, 2022 10:09
[2022-09-20] MEDS: BENZONATATE 100 MG (TESSALON) CAPSULE PO PRN (20:56)
[2022-09-20] MEDS: MELATONIN 3 MG TABLET PO PRN (20:56)
[2022-09-21 00:47] VITALS: BP 144/80
[2022-09-21] MEDS: RT-ALBUTEROL/IPRATROPIUM 3 ML (DUONEB) VIAL IH SCH ×2 (02:20→09:28)
[2022-09-21 04:12] VITALS: BP 131/68
[2022-09-21] MEDS: CEFEPIME INJECTION 1,000 MG in NS (IVPB) 50 ML IV SCH ×2 (04:58→11:35)
[2022-09-21 08:16] VITALS: BP_SYST 124; BP_SYST 137; BP_DIAS 76; BP_DIAS 84
[2022-09-21] MEDS ORDERED: PRD10T PO (08:46)
[2022-09-21] MEDS ORDERED: IPRA3AMP31 PO (08:47)
[2022-09-21] MEDS ORDERED: ALBU8.5H6 PO (08:48)
[2022-09-21] MEDS ORDERED: ALBU2.5V4 PO (08:48)
[2022-09-21] MEDS ORDERED: MELA10TA2 PO (08:49)
[2022-09-21] MEDS ORDERED: ACET-2267 PO (08:50)
[2022-09-21] MEDS ORDERED: CHOL10004 PO (08:50)
[2022-09-21] MEDS ORDERED: PHYT100T PO (08:51)
[2022-09-21] MEDS ORDERED: ASCO500T17 PO (08:52)
[2022-09-21] MEDS: predniSONE 20 MG TAB PO SCH (08:56)
[2022-09-21] MEDS: RT--FLUTICASONE/SALMETEROL 113-14 (AIRDUO RespiCLICK) IH SCH (09:28)
[2022-09-21 09:49] LABS: BASOPHILS % (AUTO) 0 % (0-10); EOSINOPHILS % (AUTO) 0 % (0-10); HEMATOCRIT 44 % (40-54); HEMOGLOBIN 14.5 g/dL (13.3-17.7); LYMPHOCYTES # (AUTO) 0.9 10^3/uL (1.0-4.0); LYMPHOCYTES % (AUTO) 4 % (12-44); MEAN CORPUSCULAR HEMOGLOBIN 31 pg (25-34); MEAN CORPUSCULAR HGB CONC 33 g/dL (32-36); MEAN CORPUSCULAR VOLUME 93 fL (80-99); MEAN PLATELET VOLUME 11.7 fL (9.0-12.2); MONOCYTES % (AUTO) 4 % (0-12); NEUTROPHILS % (AUTO) 92 % (42-75); PLATELET COUNT 178 10^3/uL (130-400)
[2022-09-21] MEDS ORDERED: CEFD300C3 PO (11:33)
[2022-09-21] MEDS ORDERED: PRED10TA22 PO (11:33)
[2022-09-21 11:50] VITALS: BP 134/76
[2022-09-21 15:00] VITALS: BP 134/76
--- NOTE | 2022-09-21 15:27 | Discharge Summary ---
Discharge Summary Hospital Course Problems/Dx: (1) Acute respiratory failure with hypoxia Status: Acute (2) COPD exacerbation Status: Acute (3) Pneumonia Status: Acute Qualifiers: Qualified Codes: J18.9 - Pneumonia, unspecified organism (4) HTN (hypertension) Status: Chronic (5) HLD (hyperlipidemia) Status: Chronic (6) CAD (coronary artery disease) Status: Chronic Hospital Course Date of Admission: Sep 19, 2022 at 10:22 Admission Diagnosis : Acute respiratory failure with hypoxia due to COPD exacerbation and pneumonia Family Physician/Provider: Peyman Davison DO Date of Discharge: 09/21/22 Discharge Diagnosis: Acute respiratory failure with hypoxia due to COPD exacerbation and pneumonia Hospital Course: Jalen Granados is a 77 year old male with PMH HTN, HLD, CAD, COPD, who was admitted with acute respiratory failure with hypoxia due to COPD exacerbation and pneumonia. He was treated with IV antibiotics and steroids. He was also given fluids and breathing treatments. He improved but was still requiring oxygen, 3 L with exertion only. He was given a steroid taper and a short course of oral antibiotics. He was discharged home in stable condition. He is moving to [facility] and plans to establish with a physician when he gets there. Labs and Pending Lab Test: Laboratory Tests 09/21/22 09:42: White Blood Count 24.0H, Red Blood Count 4.72, Hemoglobin 14.5, Hematocrit 44, Mean Corpuscular Volume 93, Mean Corpuscular Hemoglobin 31, Mean Corpuscular Hemoglobin Concent 33, Red Cell Distribution Width 13.2, Platelet Count 178, Mean Platelet Volume 11.7, Immature Granulocyte % (Auto) 1, Neutrophils (%) (Auto) 92H, Lymphocytes (%) (Auto) 4L, Monocytes (%) (Auto) 4, Eosinophils (%) (Auto) 0, Basophils (%) (Auto) 0, Neutrophils # (Auto) 22.0H, Lymphocytes # (Auto) 0.9L, Monocytes # (Auto) 1.0, Eosinophils # (Auto) 0.0, Basophils # (Auto) 0.0, Immature Granulocyte # (Auto) 0.2H Microbiology 09/19/22 Gram Stain - Final, Resulted 09/19/22 Sputum Culture - Preliminary, Resulted Gram Negative Maksim 09/19/22 Blood Culture - Preliminary, Resulted No growth Home Meds Active Cefdinir 300 Mg Capsule 300 Mg PO BID 5 Days Prednisone 10 Mg Tab.ds.pk 10 Mg PO DAILY Take 6 tabs(60mg)daily,decrease by 1 tab(10mg)every other day. Reported Vitamin C (Ascorbic Acid) 500 Mg Tablet 500 Mg PO DAILY Vitamin K (Phytonadione) 100 Mcg Tablet 100 Mcg PO DAILY Tylenol Extra Strength (Acetaminophen) 500 Mg Tablet 1,000 Mg PO Q8H PRN TAKES 2 (500mg) TABS Vitamin D3 (Cholecalciferol (Vitamin D3)) 25 Mcg (1000 Unit) Tablet 25 Mcg PO DAILY Melatonin 10 Mg Tablet 10 Mg PO HS PRN Ventolin Hfa (Albuterol Sulfate) 90 Mcg Hfa.aer.ad 1 Puff PO Q6H PRN 1 PUFF = 90 MCG Albuterol Sulfate 2.5 Mg/3 Ml (0.083 %) Vial.neb 1 Vial PO Q6H PRN Iprat-Albut 0.5-3(2.5) mg/3 ml (Ipratropium/Albuterol Sulfate) 0.5 Mg-3 Mg (2.5 Mg Base)/3 Ml Ampul.neb 1 Vial PO Q6H PRN Pravastatin Sodium 40 Mg Tablet 40 Mg PO DAILY Aspirin 81 Mg Tab.chew 81 Mg PO DAILY Zyrtec (Cetirizine HCl) 10 Mg Capsule 10 Mg PO DAILY Advair 100-50 Diskus (Fluticasone/Salmeterol) 100 Mcg-50 Mcg/Dose Blst.w.dev 1 Each IH BID Metoprolol Succinate 25 Mg Tab.er.24h 25 Mg PO DAILY Protonix (Pantoprazole Sodium) 40 Mg Tablet.dr 40 Mg PO DAILY FILLED 02-13-2022 #90/90 DAY SUPPLY Assessment/Pt Instructions See instructions Discharge Planning: >30 minutes discharge planning Discharge Instructions Discharge Diet: Low Sodium Diet Activity as Tolerated: Yes Discharge Physical Examination Vital Signs Vital Signs Date Time Temp Pulse Resp B/P (MAP) Pulse Ox O2 Delivery O2 Flow Rate FiO2 09/21/22 11:50 36.5 69 18 134/76 (95) 92 Room Air 09/21/22 09:32 0.00 General Appearance: No Apparent Distress, WD/WN Respiratory: No Respiratory Distress, Decreased Breath Sounds Cardiovascular: Regular Rate, Rhythm, No Murmur Gastrointestinal: Normal Bowel Sounds, Soft Extremity: Normal Inspection, No Pedal Edema Skin: Normal Color, Warm/Dry Neurologic/Psychiatric: Alert, Normal Mood/Affect Allergies: Coded Allergies: No Known Drug Allergies (Unverified , 03/13/22) Discharge Summary Date of Admission Sep 19, 2022 at 10:22 Date of Discharge Discharge Date: Sep 21, 2022 Discharge Time: 15:22 Admission Diagnosis Acute respiratory failure with hypoxia due to COPD exacerbation and pneumonia Discharge Diagnosis (1) Acute respiratory failure with hypoxia Status: Acute (2) COPD exacerbation Status: Acute (3) Pneumonia Status: Acute Qualifiers: Qualified Codes: J18.9 - Pneumonia, unspecified organism (4) HTN (hypertension) Status: Chronic (5) HLD (hyperlipidemia) Status: Chronic (6) CAD (coronary artery disease) Status: Chronic DUDLEY ENGLE MD Sep 21, 2022 15:26
== END 2022-09-21 15:00 | disposition home or self-care (01) | DRG 193 ==
LOC: EDUNIT# 07:28 → ER 07:30 → 4TH 10:22
PROVIDERS: ADMIT Family Medicine; ATTEND Internal Medicine
DX: J18.9 Pneumonia, unspecified organism (principal); J96.01 Acute respiratory failure with hypoxia; J44.0 Chronic obstructive pulmonary disease with (acute) lower respiratory infection; J44.1 Chronic obstructive pulmonary disease with (acute) exacerbation; I25.10 Atherosclerotic heart disease of native coronary artery without angina pectoris; F41.9 Anxiety disorder, unspecified; E78.00 Pure hypercholesterolemia, unspecified; I10 Essential (primary) hypertension; K21.9 Gastro-esophageal reflux disease without esophagitis; H54.3 Unqualified visual loss, both eyes; Z87.891 Personal history of nicotine dependence; Z95.5 Presence of coronary angioplasty implant and graft; I25.2 Old myocardial infarction; Z85.46 Personal history of malignant neoplasm of prostate; Z79.899 Other long term (current) drug therapy
CPT/HCPCS: 36415; 36600; 71045; 80048; 82805; 83605; 85007; 85025; 85027; 85610; 85730; 87040; 87070; 87077; 87205; 94640; 94664; 94760; 94761